=== PATIENT | female | born 1960 | race Caucasian/White ===

== ENCOUNTER → 2016-07-09 | Outpatient (CLI) | payer BC ==
[2016-07-09 16:04] LABS: CH 31.6; HCT 46.1 % (34.0-46.0); HDW 2.76; MCH 30.4 pg (25.0-35.0); MCHC 32.5 g/dL (31.0-37.0); MCV 93.4 fL (80.0-100.0); Mean Platelet Volume 8.1; RBC 4.94 m/uL (3.80-5.40); RDW 12.2 % (11.5-15.5); WBC 9.3 k/uL (3.8-10.6)
[2016-07-09 16:16] LABS: ALT 33 U/L (9-52); AST 20 U/L (14-36); Alkaline Phosphatase 97 U/L (38-126); Anion Gap 14 mmol/L; Blood Urea Nitrogen 12 mg/dL (7-17); Calcium 9.4 mg/dL (8.4-10.2); Carbon Dioxide 24 mmol/L (22-30); Chloride 105 mmol/L (98-107); Glucose 97 mg/dL (74-99); Non-African American GFR(MDRD) >60 (>60 ml/min/1.73 sqM); Sodium 143 mmol/L (137-145); Total Bilirubin 0.4 mg/dL (0.2-1.3); Total Protein 7.7 g/dL (6.3-8.2)
== END | disposition home or self-care (01) ==
LOC: LABWHC1 15:15
PROVIDERS: ATTEND Internal Medicine Critical Care Medicine
DX: J06.9 Acute upper respiratory infection, unspecified (principal)
CPT/HCPCS: 36415; 80053; 85027

== ENCOUNTER → 2016-07-21 | Outpatient (CLI) | payer BC ==
[2016-07-21 08:31] LABS: Basophils # (A) 0.1 k/uL (0-0.2); Basophils % (A) 1 %; CH 31.8; CHCM 34.4; Eosinophils # (A) 0.3 k/uL (0-0.7); Eosinophils % (A) 4 %; HGB 15.6 gm/dL (11.4-16.0); Luc # (Auto) 0.11; Luc % (Auto) 2; Lymphocytes # (A) 2.4 k/uL (1.0-4.8); Lymphocytes % (A) 32 %; MCH 31.4 pg (25.0-35.0); MCHC 33.9 g/dL (31.0-37.0); MCV 92.8 fL (80.0-100.0); Mean Platelet Volume 7.9; Monocytes # (A) 0.4 k/uL (0-1.0); Monocytes % (A) 5 %; Neutrophils # (A) 4.2 k/uL (1.3-7.7); Neutrophils % (A) 56 %; RBC 4.96 m/uL (3.80-5.40); RDW 12.7 % (11.5-15.5); WBC 7.5 k/uL (3.8-10.6); WBC (Perox) 7.53
[2016-07-21 08:44] LABS: ALT 28 U/L (9-52); AST 16 U/L (14-36); Alkaline Phosphatase 93 U/L (38-126); Anion Gap 12 mmol/L; Blood Urea Nitrogen 13 mg/dL (7-17); Calcium 9.2 mg/dL (8.4-10.2); Carbon Dioxide 25 mmol/L (22-30); Chloride 105 mmol/L (98-107); Cholesterol 195 mg/dL (<200); Glucose 92 mg/dL (74-99); HDL Cholesterol 58 mg/dL (40-60); Non-African American GFR(MDRD) >60 (>60 ml/min/1.73 sqM); Potassium 4.4 mmol/L (3.5-5.1); Sodium 142 mmol/L (137-145); Total Bilirubin 0.6 mg/dL (0.2-1.3); Total Protein 7.4 g/dL (6.3-8.2); Triglycerides 202 mg/dL (<150)
[2016-07-21 11:05] LABS: Hemoglobin A1C 5.4 % (4.2-6.1)
== END | disposition home or self-care (01) ==
LOC: LABWHC1 08:02
PROVIDERS: ATTEND Internal Medicine Critical Care Medicine
DX: Z00.00 Encounter for general adult medical examination without abnormal findings (principal); E55.9 Vitamin D deficiency, unspecified; D64.9 Anemia, unspecified
CPT/HCPCS: 36415; 80053; 80061; 82306; 83036; 84439; 84443; 85025

== ENCOUNTER → 2016-08-09 | Outpatient (CLI) | payer BC ==
--- NOTE | 2016-08-09 08:49 | CT ---
EXAMINATION TYPE: CT chest w con DATE OF EXAM: 08/09/2016 8:16 AM COMPARISON: NONE HISTORY: Patient complains of difficulty breathing, chest pain, and cough. CT DLP: 331.2 mGycm, Automated exposure control for dose reduction was used. CONTRAST: Performed injected with 100 mL of Omnipaque 300. TECHNIQUE: Axial images were obtained at 5 mm thick sections. Reconstructed images are reviewed on [employer] computer in the coronal plane. FINDINGS: Portion of the thyroid visualized is normal. No suspicious lung nodules or focal infiltrates are present. No enlarged mediastinal or hilar adenopathy is evident. The ascending aorta diameter at the level o f the main pulmonary artery is 3.6 cm. The main pulmonary artery diameter at the bifurcation is 2.[address] sections are obtained through the upper abdomen. Abdomen is essentially unremarkable. IMPRESSIONS: 1. Unremarkable CT chest.
== END | disposition home or self-care (01) ==
LOC: RADCTMAIN 07:40
PROVIDERS: ATTEND Internal Medicine Critical Care Medicine
DX: R07.9 Chest pain, unspecified (principal); R05 Cough; R06.02 Shortness of breath
CPT/HCPCS: 71260; Q9967

== ENCOUNTER 2016-08-31 06:47 | Day surgery (SDC) | payer BC ==
[2016-08-28 10:00] VITALS: BMI 32.8
[~2016-08-31 06:47] MED LIST: LACTATED RINGERS 1,000 ML IV SCH
[2016-08-31 07:15] VITALS: RESP 16; TEMP 98.1
[2016-08-31 07:26] LABS: Glucose,Whole Blood 89 mg/dL (75-99)
[2016-08-31] MEDS ORDERED: PROPOFOL 10 MG/ML 20 ML VIAL IV ONE (07:46)
[2016-08-31] MEDS ORDERED: LIDOCAINE 1% INJ 10MG/ML (20 ML MDV) ONE (07:46)
--- NOTE | 2016-08-31 07:52 | P.GSHP ---
History of Present Illness H&P Date: 08/31/16 Chief Complaint: Colon cancer screening Patient here today for colonoscopy. Her last colonoscopy was 6-7 years ago. She is family history of colon cancer in her mother and grandmother. Some constipation. Past Medical History Past Medical History: Pneumonia Additional Past Medical History / Comment(s): pneumonia Jun 29 thru end of Jul,steroids Jul 2016,constipation,hemorrhoids History of Any Multi-Drug Resistant Organisms: None Reported Past Surgical History: Cholecystectomy, Hysterectomy Past Anesthesia/Blood Transfusion Reactions: Family History of Problems w/ Anesthesia, Motion Sickness, Postoperative Nausea & Vomiting (PONV) Additional Past Anesthesia/Blood Transfusion Reaction / Comment(s): brother and sister both have PONV Past Psychological History: No Psychological Hx Reported Smoking Status: Former smoker Past Alcohol Use History: Occasional Additional Past Alcohol Use History / Comment(s): smoked casually in teens Past Drug Use History: None Reported - Past Family History Mother Family Medical History: Cancer Additional Family Medical History / Comment(s): colon,lung. mother's mom colon CA Father Family Medical History: Cancer Additional Family Medical History / Comment(s): prostate Brother(s) Family Medical History: Cancer Additional Family Medical History / Comment(s): prostate Medications and Allergies Home Medications Medication Instructions Recorded Confirmed Type Cholecalciferol [Vitamin D3] 1,000 unit PO DAILY 07/27/16 08/31/16 History L.acidoph,Paracasei, B.lactis 1 each PO DAILY 07/27/16 08/31/16 History [Probiotic] Allergies Allergy/AdvReac Type Severity Reaction Status Date / Time No Known Allergies Allergy Verified 08/31/16 07:18 Surgical - Exam Vital Signs Temp Pulse Resp BP 98.1 F 76 16 134/79 08/31/16 07:10 08/31/16 07:10 08/31/16 07:10 08/31/16 07:10 Physical exam: General: Well-developed, well-nourished HEENT: Normocephalic, sclerae nonicteric Abdomen: Nontender, nondistended Extremities: No edema Neuro: Alert and oriented Assessment and Plan (1) Colon cancer screening Narrative/Plan: Will proceed with colonoscopy at this time. Status: Acute
--- NOTE | 2016-08-31 08:10 | P.PCN ---
Date of Procedure: 08/31/16 Procedure(s) Performed: PREOPERATIVE DIAGNOSIS: Colon cancer screening, family history of colon cancer POSTOPERATIVE DIAGNOSIS: Poor colonic prep otherwise normal PROCEDURE: Colonoscopy ANESTHESIA: MAC SURGEON: Joey Salazar M.D. SPECIMENS: None ENDOSCOPIC PROCEDURE: The patient was placed on the endoscopy table in the left decubitus position. The Olympus colonoscope was inserted into the anus and passed under direct visualization to the base of the cecum. The appendiceal orifice was visualized. From that point the scope was slowly withdrawn inspecting all surfaces carefully. There were no neoplastic inflammatory or polypoid lesions throughout the cecum, ascending, transverse, descending, sigmoid and rectum. The patient had retained stool seen scattered throughout the entire colon. This made visualization of the mucosal surfaces challenging. Despite irrigation I would estimate that we were only able to visualize about 70% of the mucosal surfaces. There was no diverticulosis noted. Digital rectal examination was normal. The patient was taken to the recovery room in stable condition per anesthesia guidelines. RECOMMENDATIONS: Increase fiber. Patient should consider 2 day bowel prep next time. Recommend follow-up colonoscopy 5 years.
[2016-08-31 09:01] VITALS: BP 142/85; PULSE 70
== END 2016-08-31 09:14 | disposition home or self-care (01) ==
LOC: ORWHC2ENDO 06:47
PROVIDERS: ATTEND Surgery
DX: Z12.11 Encounter for screening for malignant neoplasm of colon (principal); Z80.0 Family history of malignant neoplasm of digestive organs; E66.9 Obesity, unspecified; Z87.891 Personal history of nicotine dependence; Z79.899 Other long term (current) drug therapy
CPT/HCPCS: J2001; J2704; G0105

== ENCOUNTER → 2016-12-05 | Outpatient (CLI) | payer BC ==
[2016-12-05 18:20] LABS: Follicle Stimulating Hormone 68.5 mIU/mL
== END ==
LOC: LABT 16:55
PROVIDERS: ATTEND Internal Medicine Critical Care Medicine
DX: N91.2 Amenorrhea, unspecified (principal); E55.9 Vitamin D deficiency, unspecified
CPT/HCPCS: 82670; 82672; 83001; 83002; 84402

== ENCOUNTER → 2016-12-10 | Outpatient (CLI) | payer BC ==
--- NOTE | 2016-12-14 13:49 | HM ---
HOLTER MONITOR Patient was monitored for 24 hours. Baseline rhythm is sinus mechanism and normal conduction. The average rate 80 beats per minute, minimum 53, maximal 116 beats per minute. Ventricular ectopic activity is present with single PVC's. A periventricular ectopy was present with rare single PAC's, symptoms of tightness, rapid heartbeat. Did not correlate with any dysrhythmia. CONCLUSION: 1. Sinus mechanism with baseline rhythm. 2. Rare ventricular ectopic activity. 3. Rare supraventricular ectopic activity. 4. Symptoms did not correlate with any dysrhythmia. MTDD
== END | disposition home or self-care (01) ==
LOC: RADECHMAIN 12:31
PROVIDERS: ATTEND Internal Medicine Critical Care Medicine
DX: I47.1 Supraventricular tachycardia (principal)
CPT/HCPCS: 93225; 93226

== ENCOUNTER → 2017-02-08 | Outpatient (CLI) | payer BC ==
--- NOTE | 2017-02-08 09:54 | BD ---
EXAMINATION TYPE: MG DEXA axial skeleton. DATE OF EXAM: 02/08/2017 COMPARISON: NONE CLINICAL HISTORY: Z78.0 POST MENOPAUSAL Height: 66 Weight: 214 FRAX RISK QUESTIONS: Alcohol (3 or more units per day): NO Family History (Parent hip fracture): NO Glucocorticoids (More than 3mos): NO (Ex: prednisone, prednisolone, methylprednisolone, dexamethasone, and hydrocortisone). History of Fracture in Adulthood: NO Secondary Osteoporosis: NO 1. Type 1 Diabetes: NO 2. Hyperthyroidism: NO 3. Menopause before 45: NO 4. Malnutrition: NO 5. Chronic liver disease: NO Rheumatoid Arthritis: NO Current Tobacco Use: NO RISK FACTORS HISTORY OF: Spine Fracture: OLD FRACTURE LUMBAR SPINE When: IN HER 20'S ROTATOR CUFF TEAR LT SHOULDER FROM ANOTHER FALL Family History of Osteoporosis: NONE KNOWN Active: YES Diet low in dairy products/other sources of calcium: NO Postmenopausal woman: HYST AT 44 YRS OLD, HORMONAL CHANGES AT AGE 54 Lost more than 2 inches in height since high school: NO Hyperparathyroidism: NO Adrenal Insufficiency: NO MEDICATIONS: Prednisone or other steroids: STEROIDS WITH PNEUMONIA ON AND OFF Additional Medications: VIT D WHEN SHE REMEMBERS, HERBAL REMEDY FOR MENOPAUSE Additional History: NONE TO NOTE EXAM MEASUREMENTS: Bone mineral densitometry was performed using the Pumpic System. OLD LUMBAR FX....FROM FALL IN HER 20'S......LUMBAR NOT SCANNED Bone mineral density about the R hip (g/cm2): 1.197 Bone mineral density about the L hip (g/cm2): 1.197 T Score values are as follows: -----R Neck: 1.0 -----L Neck: 0.6 -----R Total: 1.5 -----L Total: 1.5 Bone mineral density THIS IS HER FIRST BONE DENSITY TEST.....BASELINE STUDY FRAX%'S: THERE IS A 4.4% CHANCE OF A MAJOR OSTEOPOROSIS FX AND A 0.0% CHANCE FOR HIP FX... PROBABI LITY IN 10 YRS TIME IMPRESSION: Normal (Values between +1 and -1 indicate normal bone mass). Consider repeating this study in 5 year s or sooner if there is some new clinical indication. FOR BOTH OF HER HIPS. NOTE: T-SCORE=SD OF THE YOUNG ADULT MEAN.
--- NOTE | 2017-02-11 07:22 | MM ---
Reason for exam: screening (asymptomatic). Last mammogram was performed 1 year and 9 months ago. History: Patient is postmenopausal. Family history of premenopausal breast cancer in sister at age 51. Physical Findings: A clinical breast exam by your physician is recommended on an annual basis and results should be correlated with mammographic findings. MG Screening Mammo w CAD Bilateral CC and MLO view(s) were taken. Prior study comparison: May 23, 2015, left breast MG 3d work up w/cad LT. May 10, 2015, bilateral MG screening mammo w CAD. There are scattered fibroglandular densities. There is no discrete abnormality. No significant changes when compared with prior studies. ASSESSMENT: Negative, BI-RAD 1 RECOMMENDATION: Routine screening mammogram of both breasts in 1 year.
== END | disposition home or self-care (01) ==
LOC: RADMAMWWP 08:52
PROVIDERS: ATTEND Obstetrics & Gynecology
DX: Z12.31 Encounter for screening mammogram for malignant neoplasm of breast (principal); Z78.0 Asymptomatic menopausal state
CPT/HCPCS: 77080; G0202

== ENCOUNTER → 2017-08-31 | Outpatient (CLI) | payer BC ==
[2017-08-31 09:04] LABS: Basophils % (A) 1 %; Eosinophils # (A) 0.4 k/uL (0-0.7); Eosinophils % (A) 14 %; HCT 42.2 % (34.0-46.0); HGB 14.3 gm/dL (11.4-16.0); Lymphocytes # (A) 0.7 k/uL (1.0-4.8); Lymphocytes % (A) 23 %; MCHC 33.9 g/dL (31.0-37.0); MCV 88.6 fL (80.0-100.0); Mean Platelet Volume 8.1; Monocytes # (A) 0.2 k/uL (0-1.0); Monocytes % (A) 7 %; Neutrophils # (A) 1.7 k/uL (1.3-7.7); Neutrophils % (A) 54 %; Platelet Count 214 k/uL (150-450); RBC 4.76 m/uL (3.80-5.40); RDW 12.7 % (11.5-15.5); WBC 3.2 k/uL (3.8-10.6)
[2017-08-31 09:24] LABS: ALT 237 U/L (9-52); AST 245 U/L (14-36); Albumin 4.2 g/dL (3.5-5.0); Alkaline Phosphatase 128 U/L (38-126); Anion Gap 14 mmol/L; Blood Urea Nitrogen 14 mg/dL (7-17); Calcium 9.5 mg/dL (8.4-10.2); Carbon Dioxide 25 mmol/L (22-30); Chloride 106 mmol/L (98-107); Cholesterol 165 mg/dL (<200); Glucose 94 mg/dL (74-99); HDL Cholesterol 54 mg/dL (40-60); LDL Cholesterol,Calculated 87 mg/dL (0-99); Potassium 4.5 mmol/L (3.5-5.1); Sodium 145 mmol/L (137-145); Total Bilirubin 0.7 mg/dL (0.2-1.3); Total Protein 7.1 g/dL (6.3-8.2); Triglycerides 119 mg/dL (<150)
[2017-08-31 09:38] LABS: T4, Free (Free Thyroxine) 0.88 ng/dL (0.78-2.19)
[2017-08-31 18:37] LABS: Hemoglobin A1C 4.9 % (4.0-6.0)
== END ==
LOC: LABWHC1 08:04
PROVIDERS: ATTEND Internal Medicine Critical Care Medicine
DX: Z00.00 Encounter for general adult medical examination without abnormal findings (principal); D64.9 Anemia, unspecified; E55.9 Vitamin D deficiency, unspecified
CPT/HCPCS: 36415; 80053; 80061; 82306; 83036; 84439; 84443; 85025

== ENCOUNTER → 2017-09-03 | Outpatient (CLI) | payer BC ==
[2017-09-03 18:12] LABS: Albumin 4.6 g/dL (3.5-5.0); Bilirubin, Delta 0.3 mg/dL (0.0-0.2); Bilirubin,Unconjugated 0.2 mg/dL (0.0-1.1); Total Bilirubin 0.5 mg/dL (0.2-1.3); Total Protein 7.9 g/dL (6.3-8.2)
[2017-09-04 01:56] LABS: Hepatitis A Antibody IgM Non-Reactive (Non-Reactive); Hepatitis B Core IgM Non-Reactive (Non-Reactive)
== END | disposition home or self-care (01) ==
LOC: LABWHC1 17:22
PROVIDERS: ATTEND Internal Medicine Critical Care Medicine
DX: R74.8 Abnormal levels of other serum enzymes (principal)
CPT/HCPCS: 36415; 80074; 80076; 82150; 83690

== ENCOUNTER → 2017-09-11 | Outpatient (CLI) | payer BC ==
--- NOTE | 2017-09-11 09:55 | US ---
EXAMINATION TYPE: US abdomen limited DATE OF EXAM: 09/11/2017 COMPARISON: NONE CLINICAL HISTORY: R94.5 Elevated liver function. Cholecystectomy, elevated liver enzymes EXAM MEASUREMENTS: Liver Length: 15.1 cm Gallbladder Wall: Surgically absent CBD: 0.4 cm Right Kidney: 11.4 x 4.0 x 5.0 cm Pancreas: visualized portions appear wnl Liver: hyperechoic area left lobe = 1.3 x 1.1 x 1.2cm Gallbladder: Surgically absent Evidence for sonographic Morales's sign: no CBD: wnl Right Kidney: no evidence of hydronephrosis or mass IMPRESSION: 1. Slightly hyperechoic area within the right lobe liver could represent a hemangioma. Consider contr ast CT for additional evaluation.
== END | disposition home or self-care (01) ==
LOC: RADUSWWP 07:25
PROVIDERS: ATTEND Internal Medicine Critical Care Medicine
DX: R93.2 Abnormal findings on diagnostic imaging of liver and biliary tract (principal); R94.5 Abnormal results of liver function studies
CPT/HCPCS: 76705

== ENCOUNTER → 2018-02-14 | Outpatient (CLI) | payer BC ==
--- NOTE | 2018-02-17 12:41 | MM ---
Reason for exam: screening (asymptomatic). Last mammogram was performed 1 year ago. History: Patient is postmenopausal. Family history of premenopausal breast cancer in sister at age 51. Physical Findings: A clinical breast exam by your physician is recommended on an annual basis and results should be correlated with mammographic findings. MG 3D Screening Mammo W/Cad Bilateral CC and MLO view(s) were taken. Prior study comparison: February 08, 2017, bilateral MG screening mammo w CAD. May 23, 2015, left breast MG 3d work up w/cad LT. The breast tissue is heterogeneously dense. This may lower the sensitivity of mammography. Focal asymmetry upper outer right breast. This finding is changed when compared with previous exams. ASSESSMENT: Incomplete: need additional imaging evaluation, BI-RAD 0 RECOMMENDATION: Special view mammogram of the right breast. If lesion persists on supplemental views, image directed ultrasound is recommended. [facility] will attempt to contact patient to return for supplemental views and ultrasound if indicated.
== END | disposition home or self-care (01) ==
LOC: RADMAMWWP 16:34
PROVIDERS: ATTEND Internal Medicine Critical Care Medicine
DX: Z12.31 Encounter for screening mammogram for malignant neoplasm of breast (principal)
CPT/HCPCS: 77063; 77067

== ENCOUNTER → 2018-02-25 | Outpatient (CLI) | payer BC ==
--- NOTE | 2018-02-25 14:07 | MM ---
Reason for exam: additional evaluation requested from abnormal screening. Last mammogram was performed less than 1 month ago. History: Patient is postmenopausal. Family history of premenopausal breast cancer in sister at age 51. Physical Findings: Nurse did not find any significant physical abnormalities on exam. MG 3D Work Up W/Cad RT Spot compression CC, spot compression MLO, and LM view(s) were taken of the right breast. Prior study comparison: February 14, 2018, bilateral MG 3d screening mammo w/cad. February 08, 2017, bilateral MG screening mammo w CAD. There are scattered fibroglandular densities. There is no discrete abnormality. These results were verbally communicated with the patient and result sheet given to the patient on 02/25/18. ASSESSMENT: Benign, BI-RAD 2 RECOMMENDATION: Return to routine screening mammogram schedule for both breasts.
== END | disposition home or self-care (01) ==
LOC: RADMAMWWP 12:55
PROVIDERS: ATTEND Internal Medicine Critical Care Medicine
DX: R92.8 Other abnormal and inconclusive findings on diagnostic imaging of breast (principal)
CPT/HCPCS: 77061; 77065

== ENCOUNTER → 2018-09-04 | Outpatient (CLI) | payer BC ==
[2018-09-04 07:16] LABS: Basophils # (A) 0.1 k/uL (0-0.2); Basophils % (A) 1 %; Eosinophils # (A) 0.4 k/uL (0-0.7); Eosinophils % (A) 7 %; HCT 41.1 % (34.0-46.0); HGB 14.1 gm/dL (11.4-16.0); Lymphocytes % (A) 35 %; MCH 30.5 pg (25.0-35.0); MCHC 34.3 g/dL (31.0-37.0); Mean Platelet Volume 8.6; Monocytes # (A) 0.3 k/uL (0-1.0); Monocytes % (A) 5 %; Neutrophils # (A) 2.9 k/uL (1.3-7.7); Neutrophils % (A) 51 %; Platelet Count 246 k/uL (150-450); RBC 4.62 m/uL (3.80-5.40); RDW 13.2 % (11.5-15.5); WBC 5.6 k/uL (3.8-10.6)
[2018-09-04 09:41] LABS: Erythrocyte Sedimentation Rate 14 mm/hr (0-20)
[2018-09-04 11:52] LABS: ALT 19 U/L (8-44); AST 25 U/L (13-35); Alkaline Phosphatase 124 U/L (41-126); Bilirubin, Conjugated <0.20 mg/dL (0.20-0.40); Calcium 9.3 mg/dL (8.7-10.3); Carbon Dioxide 26.2 mmol/L (21.6-31.8); Chloride 107 mmol/L (96-109); Cholesterol 185 mg/dL (0-200); Globulin 2.2 g/dL (1.6-3.3); Glucose 103 mg/dL (70-110); LDL Cholesterol,Calculated 98.8 mg/dL (0.0-131.0); Potassium 4.2 mmol/L (3.5-5.5); Sodium 142 mmol/L (135-145); Total Bilirubin 0.5 mg/dL (0.2-1.2); Total Protein 6.6 g/dL (6.2-8.2)
[2018-09-04 15:25] LABS: Hemoglobin A1C 5.3 % (4.0-6.0)
== END ==
LOC: LABWHC1 06:54
PROVIDERS: ATTEND Internal Medicine Critical Care Medicine
DX: Z00.00 Encounter for general adult medical examination without abnormal findings (principal); E55.9 Vitamin D deficiency, unspecified; K75.9 Inflammatory liver disease, unspecified; Z79.899 Other long term (current) drug therapy
CPT/HCPCS: 36415; 80053; 80061; 82248; 82306; 83036; 84439; 84443; 84481; 85025; 85652

== ENCOUNTER → 2019-03-17 | Outpatient (CLI) | payer BC ==
--- NOTE | 2019-03-19 08:34 | MM ---
Reason for exam: screening (asymptomatic). Last mammogram was performed 1 year and 1 month ago. History: Patient is postmenopausal. Family history of premenopausal breast cancer in sister at age 51. Physical Findings: A clinical breast exam by your physician is recommended on an annual basis and results should be correlated with mammographic findings. MG 3D Screening Mammo W/Cad Bilateral CC and MLO view(s) were taken. Prior study comparison: February 25, 2018, right breast MG 3d work up w/cad RT. February 14, 2018, bilateral MG 3d screening mammo w/cad. The breast tissue is heterogeneously dense. This may lower the sensitivity of mammography. No significant changes when compared with prior studies. ASSESSMENT: Benign, BI-RAD 2 RECOMMENDATION: Routine screening mammogram of both breasts in 1 year.
== END | disposition home or self-care (01) ==
LOC: RADMAMWWP 12:58
PROVIDERS: ATTEND Internal Medicine Critical Care Medicine
DX: Z12.31 Encounter for screening mammogram for malignant neoplasm of breast (principal)
CPT/HCPCS: 77063; 77067

== ENCOUNTER → 2020-05-06 | Outpatient (CLI) | payer BC ==
--- NOTE | 2020-05-10 08:30 | MM ---
Reason for exam: screening (asymptomatic). Last mammogram was performed 1 year and 2 months ago. History: Patient is postmenopausal. Family history of premenopausal breast cancer in sister at age 51. Physical Findings: A clinical breast exam by your physician is recommended on an annual basis and results should be correlated with mammographic findings. MG 3D Screening Mammo W/Cad Bilateral CC and MLO view(s) were taken. Prior study comparison: March 17, 2019, bilateral MG 3d screening mammo w/cad. February 25, 2018, right breast MG 3d work up w/cad RT. The breast tissue is heterogeneously dense. This may lower the sensitivity of mammography. There is chronic nodularity bilaterally. No significant changes when compared with prior studies. ASSESSMENT: Negative, BI-RAD 1 RECOMMENDATION: Routine screening mammogram of both breasts in 1 year.
== END | disposition home or self-care (01) ==
LOC: RADMAMWWP 11:16
PROVIDERS: ATTEND Internal Medicine Critical Care Medicine
DX: Z12.31 Encounter for screening mammogram for malignant neoplasm of breast (principal)
CPT/HCPCS: 77063; 77067

== ENCOUNTER → 2020-08-12 | Outpatient (CLI) | payer OTHER ==
[2020-08-12 15:36] LABS: Basophils # (A) 0.06 X 10*3/uL (0.00-0.10); Basophils % (A) 1.2 %; Eosinophils % (A) 8.1 %; HCT 43.9 % (37.2-46.3); HGB 14.3 g/dL (12.0-15.0); Lymphocytes # (A) 1.79 X 10*3/uL (0.90-5.00); Lymphocytes % (A) 36.3 %; MCH 30.8 pg (27.0-32.0); MCHC 32.6 g/dL (32.0-37.0); MCV 94.4 fL (80.0-97.0); Mean Platelet Volume 11.2 fL (9.5-12.2); Monocytes # (A) 0.37 X 10*3/uL (0.20-1.00); Monocytes % (A) 7.5 %; Neutrophils % (A) 46.7 %; Platelet Count 261 X 10*3/uL (140-440); RBC 4.65 X 10*6/uL (4.10-5.20); WBC 4.93 X 10*3/uL (4.50-10.00)
[2020-08-12 19:17] LABS: African American GFR (CKD) 81.7 (60.0-200.0); Albumin 4.6 g/dL (3.80-4.90); Anion Gap 9.7 mmol/L (4.00-12.00); BUN/Creat Ratio 14.44 Ratio (12.00-20.00); Bilirubin, Conjugated 0.2 mg/dL (0.20-0.40); Bilirubin,Unconjugated 0.6 mg/dL; Carbon Dioxide 26.3 mmol/L (21.6-31.8); Chol/HDL Ratio 3.47; Globulin 2.3 g/dL (1.6-3.3); LDL Cholesterol,Calculated 117.4 mg/dL (0.0-131.0); Non-African American GFR(CKD) 70.5 (60.0-200.0); Potassium 4.9 mmol/L (3.5-5.5); Total Bilirubin 0.8 mg/dL (0.2-1.2); Total Protein 6.9 g/dL (6.2-8.2); VLDL Calculation 23.6 mg/dL (5.00-40.00)
[2020-08-12 19:24] LABS: T4, Free (Free Thyroxine) 1.2 ng/dL (0.80-1.80)
== END | disposition home or self-care (01) ==
LOC: LABWHC1 07:41
PROVIDERS: ATTEND Internal Medicine Critical Care Medicine
DX: Z00.00 Encounter for general adult medical examination without abnormal findings (principal); B17.9 Acute viral hepatitis, unspecified; E55.9 Vitamin D deficiency, unspecified; D64.9 Anemia, unspecified
CPT/HCPCS: 36415; 80053; 80061; 82248; 82306; 83036; 84439; 84443; 84481; 85025

== ENCOUNTER 2020-11-15 11:00 | Observation (INO) | payer OTHER ==
--- NOTE | 2020-11-15 11:20 | ED ---
General Adult HPI - General Chief complaint: Chest Pain Stated complaint: Chest Discomfort/Jaw Pain Time Seen by Provider: 11/15/20 11:19 Source: patient, family, RN notes reviewed Mode of arrival: ambulatory Limitations: no limitations - History of Present Illness Initial comments: Patient is a pleasant 60-year-old female presenting to the emergency Department with chest discomfort. Patient has been having symptoms for the past several weeks. No discomfort at this time however patient does have some jaw discomfort. Patient has had some exertional dyspnea. Patient did have an episode a few weeks ago with more significant chest discomfort associated with dyspnea and diaphoresis. Patient has had some intermittent nausea. No leg pain or leg swelling. Patient has strong family history of cardiac disease. - Related Data Home Medications Medication Instructions Recorded Confirmed Naproxen Sodium [Aleve] 220 mg PO ONETIME PRN 11/15/20 11/15/20 Allergies Allergy/AdvReac Type Severity Reaction Status Date / Time azithromycin AdvReac yeast Verified 11/15/20 12:40 infection meclizine [From [facility]] AdvReac Chest Pain Verified 11/15/20 12:40 Review of Systems ROS Statement: Those systems with pertinent positive or pertinent negative responses have been documented in the HPI. ROS Other: All systems not noted in ROS Statement are negative. Constitutional: Denies: fever Eyes: Denies: eye pain ENT: Denies: ear pain Respiratory: Reports: as per HPI. Denies: cough Cardiovascular: Reports: as per HPI, chest pain Endocrine: Reports: fatigue Gastrointestinal: Denies: abdominal pain Genitourinary: Denies: dysuria Musculoskeletal: Denies: back pain Skin: Denies: rash Neurological: Denies: weakness Past Medical History Past Medical History: No Reported History Additional Past Medical History / Comment(s): pneumonia Jun 29, thru end of Jul,steroids Jul 2016,constipation,hemorrhoids History of Any Multi-Drug Resistant Organisms: None Reported Past Surgical History: Back Surgery, Cholecystectomy, Hysterectomy Past Anesthesia/Blood Transfusion Reactions: Family History of Problems w/ Anesthesia, Motion Sickness, Postoperative Nausea & Vomiting (PONV) Additional Past Anesthesia/Blood Transfusion Reaction / Comment(s): brother and sister both have PONV Past Psychological History: No Psychological Hx Reported Smoking Status: Never smoker Past Alcohol Use History: Occasional Past Drug Use History: None Reported - Past Family History Mother Family Medical History: Cancer Additional Family Medical History / Comment(s): colon,lung. mother's mom colon CA Father Family Medical History: Cancer Additional Family Medical History / Comment(s): prostate Brother(s) Family Medical History: Cancer Additional Family Medical History / Comment(s): prostate General Exam Limitations: no limitations General appearance: alert, in no apparent distress Head exam: Present: normocephalic Eye exam: Present: normal appearance Neck exam: Present: normal inspection Respiratory exam: Present: normal lung sounds bilaterally. Absent: chest wall tenderness Cardiovascular Exam: Present: regular rate, normal rhythm Expanded Peripheral pulses: 2+: Radial (R), Radial (L), Posterior Tibialis (R), Posterior Tibialis (L) GI/Abdominal exam: Present: soft. Absent: tenderness Extremities exam: Present: normal inspection. Absent: pedal edema, calf tenderness Neurological exam: Present: alert Psychiatric exam: Present: normal affect, normal mood Skin exam: Present: normal color Course Vital Signs 11/15/20 11/15/20 11/15/20 11:05 12:14 13:19 Temperature 97.9 F Pulse Rate 101 H 65 62 Respiratory 18 18 18 Rate Blood Pressure 172/89 169/97 165/95 O2 Sat by Pulse 98 98 98 Oximetry EKG Findings - EKG Comments: EKG Findings:: EKG shows sinus rhythm with a rate of 83. UT 148. QRS 90. QT 402. QTC 472. Normal axis. Normal QRS. Nonspecific ST-T. Medical Decision Making - Medical Decision Making Patient reevaluated and resting comfortably in bed. Patient updated on results and plan. Case was discussed in detail with Dr. Pradhan, covering for hospital call who will admit. - Lab Data Result diagrams: 11/15/20 12:06 11/15/20 12:06 Lab Results 11/15/20 11/15/20 11/15/20 Range/Units 12:06 12:06 12:06 WBC 5.8 (3.8-10.6) k/uL RBC 4.51 (3.80-5.40) m/uL Hgb 14.0 (11.4-16.0) gm/dL Hct 40.7 (34.0-46.0) % MCV 90.3 (80.0-100.0) fL MCH 31.0 (25.0-35.0) pg MCHC 34.4 (31.0-37.0) g/dL RDW 12.5 (11.5-15.5) % Plt Count 234 (150-450) k/uL MPV 7.9 Neutrophils % 53 % Lymphocytes % 33 % Monocytes % 5 % Eosinophils % 7 % Basophils % 1 % Neutrophils # 3.1 (1.3-7.7) k/uL Lymphocytes # 1.9 (1.0-4.8) k/uL Monocytes # 0.3 (0-1.0) k/uL Eosinophils # 0.4 (0-0.7) k/uL Basophils # 0.1 (0-0.2) k/uL PT 10.2 (9.0-12.0) sec INR 0.9 (<1.2) APTT 24.7 (22.0-30.0) sec D-Dimer 0.29 (<0.60) mg/L FEU Sodium 141 (137-145) mmol/L Potassium 4.0 (3.5-5.1) mmol/L Chloride 104 (98-107) mmol/L Carbon Dioxide 26 (22-30) mmol/L Anion Gap 11 mmol/L BUN 15 (7-17) mg/dL Creatinine 0.78 (0.52-1.04) mg/dL Est GFR (CKD-EPI)AfAm >90 (>60 ml/min/1.73 sqM) Est GFR (CKD-EPI)NonAf 84 (>60 ml/min/1.73 sqM) Glucose 99 (74-99) mg/dL Calcium 9.8 (8.4-10.2) mg/dL Magnesium 2.0 (1.6-2.3) mg/dL Total Bilirubin 0.5 (0.2-1.3) mg/dL AST 22 (14-36) U/L ALT 14 (4-34) U/L Alkaline Phosphatase 132 H (38-126) U/L Troponin I (0.000-0.034) ng/mL NT-Pro-B Natriuret Pep pg/mL Total Protein 7.2 (6.3-8.2) g/dL Albumin 4.4 (3.5-5.0) g/dL 11/15/20 11/15/20 Range/Units 12:06 12:06 WBC (3.8-10.6) k/uL RBC (3.80-5.40) m/uL Hgb (11.4-16.0) gm/dL Hct (34.0-46.0) % MCV (80.0-100.0) fL MCH (25.0-35.0) pg MCHC (31.0-37.0) g/dL RDW (11.5-15.5) % Plt Count (150-450) k/uL MPV Neutrophils % % Lymphocytes % % Monocytes % % Eosinophils % % Basophils % % Neutrophils # (1.3-7.7) k/uL Lymphocytes # (1.0-4.8) k/uL Monocytes # (0-1.0) k/uL Eosinophils # (0-0.7) k/uL Basophils # (0-0.2) k/uL PT (9.0-12.0) sec INR (<1.2) APTT (22.0-30.0) sec D-Dimer (<0.60) mg/L FEU Sodium (137-145) mmol/L Potassium (3.5-5.1) mmol/L Chloride (98-107) mmol/L Carbon Dioxide (22-30) mmol/L Anion Gap mmol/L BUN (7-17) mg/dL Creatinine (0.52-1.04) mg/dL Est GFR (CKD-EPI)AfAm (>60 ml/min/1.73 sqM) Est GFR (CKD-EPI)NonAf (>60 ml/min/1.73 sqM) Glucose (74-99) mg/dL Calcium (8.4-10.2) mg/dL Magnesium (1.6-2.3) mg/dL Total Bilirubin (0.2-1.3) mg/dL AST (14-36) U/L ALT (4-34) U/L Alkaline Phosphatase (38-126) U/L Troponin I <0.012 (0.000-0.034) ng/mL NT-Pro-B Natriuret Pep 111 pg/mL Total Protein (6.3-8.2) g/dL Albumin (3.5-5.0) g/dL - Radiology Data Radiology results: image reviewed (Chest x-ray reveals no acute process) Disposition Clinical Impression: Chest pain Disposition: ADMITTED IP TO THIS HOSP Is patient prescribed a controlled substance at d/c from ED?: No Referrals: Refugio Chase DO [Primary Care Provider] - 1-2 days Decision Time: 13:31
[2020-11-15] MEDS ORDERED: ASPIRIN 81 MG PO STA (11:57)
[2020-11-15] MEDS ORDERED: NITROGLYCERIN OINT 1 INCH/GM PACKET TOPICAL STA (11:57)
[2020-11-15 12:14] LABS: Basophils # (A) 0.1 k/uL (0-0.2); Basophils % (A) 1 %; Eosinophils # (A) 0.4 k/uL (0-0.7); Eosinophils % (A) 7 %; HCT 40.7 % (34.0-46.0); Lymphocytes # (A) 1.9 k/uL (1.0-4.8); Lymphocytes % (A) 33 %; MCHC 34.4 g/dL (31.0-37.0); MCV 90.3 fL (80.0-100.0); Mean Platelet Volume 7.9; Monocytes # (A) 0.3 k/uL (0-1.0); Monocytes % (A) 5 %; Neutrophils # (A) 3.1 k/uL (1.3-7.7); Neutrophils % (A) 53 %; Platelet Count 234 k/uL (150-450); RBC 4.51 m/uL (3.80-5.40); RDW 12.5 % (11.5-15.5); WBC 5.8 k/uL (3.8-10.6)
[2020-11-15 12:31] LABS: D-Dimer 0.29 mg/L FEU (<0.60); INR 0.9 (<1.2); Partial Thromboplastin Time 24.7 sec (22.0-30.0); Prothrombin Time 10.2 sec (9.0-12.0)
[2020-11-15 12:46] LABS: ALT 14 U/L (4-34); AST 22 U/L (14-36); African American GFR (CKD) >90 (>60 ml/min/1.73 sqM); Albumin 4.4 g/dL (3.5-5.0); Alkaline Phosphatase 132 U/L (38-126); Anion Gap 11 mmol/L; Blood Urea Nitrogen 15 mg/dL (7-17); Calcium 9.8 mg/dL (8.4-10.2); Carbon Dioxide 26 mmol/L (22-30); Chloride 104 mmol/L (98-107); Glucose 99 mg/dL (74-99); Non-African American GFR(CKD) 84 (>60 ml/min/1.73 sqM); Sodium 141 mmol/L (137-145); Total Bilirubin 0.5 mg/dL (0.2-1.3); Total Protein 7.2 g/dL (6.3-8.2)
--- NOTE | 2020-11-15 13:09 | XR ---
EXAMINATION TYPE: XR chest 2V DATE OF EXAM: 11/15/2020 COMPARISON: 08/09/2016 HISTORY: chest pain TECHNIQUE: Frontal and lateral views of the chest are obtained. FINDINGS: There is no focal air space opacity, pleural effusion, or pneumothorax seen. The cardiac silhouette size is within normal limits. The osseous structures are intact. IMPRESSION: No acute cardiopulmonary process.
[2020-11-15] MEDS ORDERED: NITROGLYCERIN SL TABS 0.4 MG TAB SUBLINGUAL PRN (13:32)
--- NOTE | 2020-11-15 14:34 | P.CRDCN ---
History of Present Illness Consult date: 11/15/20 History of present illness: HISTORY OF PRESENT ILLNESS: This is a 60-year-old female with no significant past medical history. She is a nonsmoker. She reports occasional alcohol use. She does have a family history of coronary artery disease and states her dad had a CABG when he was in his 50s and her mom had a CABG in her early 60s. 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 Durham. We have been asked to see the patient in consultation for chest pain. Patient examined at the bedside in the emergency room. Patient states 3 weeks ago she was on vacation with her family. She states she was relaxing in a pool and her daughter brought her a drink made with tequila. She states shortly afterwards she began having severe chest pain and felt like somebody was sitting on her chest. She also reports dizziness and states she thought she was going to pass out. She got out of the pool and went to sit down and states the pain went away on its own in about 45 minutes. Patient reports this morning she got up for work in was having left jaw pain. She took some Advil and went to work. She was telling a coworker about her jaw pain and her coworker told her this co uld be a sign of heart attack so she came to the emergency room. Patient reports mild chest pressure this morning but nothing like she experienced 3 weeks ago. She denies nausea or vomiting. She denies shortness of breath at rest but reports occasional shortness of breath with exertion. She also reports occasionally getting lightheaded and sweaty over the past couple weeks. Patient's pain is worse with deep inspiration. Patient is also having tenderness with chest wall palpation. Patients blood pressure is elevated in the ER with a systolic in the 160-170s. Patient states she checks her blood pressure at home and it usually r EKG reveals sinus mechanism with [address] depression and high lateral leads Chest xray negative for acute process Laboratory data: WBC 5.8. Hemoglobin 14.0. Platelet count 234. D-dimer 0.29. Sodium 141. Potassium 4.0. BUN 15. Creatinine 0.78. Magnesium 2.0. Troponin negative 1. Current home cardiac medications include none REVIEW OF SYSTEMS: At the time of my exam: CONSTITUTIONAL: Denies fever or chills. HEENT: Denies blurred vision, vision changes, or eye pain. Denies hemoptysis CARDIOVASCULAR: Denies chest pain. Denies orthopnea. Denies PND. Denies palpitations RESPIRATORY: Denies shortness of breath. GASTROINTESTINAL: Denies abdominal pain. Denies nausea or vomiting. HEMATOLOGIC: Denies bleeding disorders. GENITOURINARY: Denies any blood in urine. SKIN: Denies pruitis. Denies rash. PHYSICAL EXAM: VITAL SIGNS: Reviewed. GENERAL: Well-developed in no acute distress. HEENT: Head is normocephalic. Pupils are equal, round. Sclerae anicteric. Mucous membranes of the mouth are moist. Neck supple. No JVD or thyromegaly LUNGS: Respirations even and unlabored. Lungs essentially clear to auscultation bilaterally. HEART: Regular rate and rhythm. S1 and S2 heard. Chest wall tender with palpation. ABDOMEN: Soft. Nondistended. Nontender. EXTREMITIES: Normal range of motion. No clubbing or cyanosis. Peripheral pulses intact. No lower extremity edema NEUROLOGIC: Awake and alert. Oriented x 3. ASSESSMENT: Chest pain with atypical features Hypertensive in ER, denies hx of HTN Occasional alcohol use Family history of coronary artery disease PLAN: Continue to trend troponin levels Continue aspirin 81mg and nitro paste Add lisinopril 5mg daily for optimal blood pressure control Obtain 2D echo to assess cardiac structure and function If troponin levels remain negative, patient will undergo stress echo tomorrow Further recommendations pending patient course Nurse practitioner note has been reviewed by physician. Signing provider agrees with the documented findings, assessment, and plan of care. Past Medical History Past Medical History: No Reported History Additional Past Medical History / Comment(s): pneumonia Jun 29, thru end of Jul,steroids Jul 2016,constipation,hemorrhoids History of Any Multi-Drug Resistant Organisms: None Reported Past Surgical History: Back Surgery, Cholecystectomy, Hysterectomy Past Anesthesia/Blood Transfusion Reactions: Family History of Problems w/ Anesthesia, Motion Sickness, Postoperative Nausea & Vomiting (PONV) Additional Past Anesthesia/Blood Transfusion Reaction / Comment(s): brother and sister both have PONV Past Psychological History: No Psychological Hx Reported Smoking Status: Never smoker Past Alcohol Use History: Occasional Past Drug Use History: None Reported - Past Family History Mother Family Medical History: Cancer Additional Family Medical History / Comment(s): colon,lung. mother's mom colon CA Father Family Medical History: Cancer Additional Family Medical History / Comment(s): prostate Brother(s) Family Medical History: Cancer Additional Family Medical History / Comment(s): prostate Medications and Allergies Home Medications Medication Instructions Recorded Confirmed Type Naproxen Sodium [Aleve] 220 mg PO ONETIME PRN 11/15/20 11/15/20 History Allergies Allergy/AdvReac Type Severity Reaction Status Date / Time azithromycin AdvReac yeast Verified 11/15/20 12:40 infection meclizine [From [facility]] AdvReac Chest Pain Verified 11/15/20 12:40 Physical Exam Vitals: Vital Signs Temp Pulse Resp BP Pulse Ox 11/15/20 13:19 62 18 165/95 98 11/15/20 12:14 65 18 169/97 98 11/15/20 11:05 97.9 F 101 H 18 172/89 98 Intake and Output 11/14/20 11/15/20 11/15/20 22:59 06:59 14:59 Other: Weight 95.254 kg Results 11/15/20 12:06 11/15/20 12:06 Cardiac Enzymes 11/15/20 11/15/20 Range/Units 12:06 12:06 AST 22 (14-36) U/L Troponin I <0.012 (0.000-0.034) ng/mL Coagulation 11/15/20 Range/Units 12:06 PT 10.2 (9.0-12.0) sec APTT 24.7 (22.0-30.0) sec CBC 11/15/20 Range/Units 12:06 WBC 5.8 (3.8-10.6) k/uL RBC 4.51 (3.80-5.40) m/uL Hgb 14.0 (11.4-16.0) gm/dL Hct 40.7 (34.0-46.0) % Plt Count 234 (150-450) k/uL Comprehensive Metabolic Panel 11/15/20 Range/Units 12:06 Sodium 141 (137-145) mmol/L Potassium 4.0 (3.5-5.1) mmol/L Chloride 104 (98-107) mmol/L Carbon Dioxide 26 (22-30) mmol/L BUN 15 (7-17) mg/dL Creatinine 0.78 (0.52-1.04) mg/dL Glucose 99 (74-99) mg/dL Calcium 9.8 (8.4-10.2) mg/dL AST 22 (14-36) U/L ALT 14 (4-34) U/L Alkaline Phosphatase 132 H (38-126) U/L Total Protein 7.2 (6.3-8.2) g/dL Albumin 4.4 (3.5-5.0) g/dL Current Medications Generic Name Dose Route Start Last Admin Trade Name Freq PRN Reason Stop Dose Admin Aspirin 325 mg 11/16/20 09:00 Aspirin 325 Mg Tab PO DAILY ERICA Nitroglycerin 0.4 mg 11/15/20 13:32 Nitroglycerin Sl Tabs 0.4 Mg Tab SUBLINGUAL Q5M PRN Chest Pain Nitroglycerin 1 inch 11/15/20 18:00 Nitroglycerin Oint 1 Inch/Gm Packet TOPICAL Q6HR ERICA Intake and Output 11/14/20 11/15/20 11/15/20 22:59 06:59 14:59 Other: Weight 95.254 kg Patient Weight 11/16/20 06:59 Weight 95.254 kg 11/15/20 12:06 11/15/20 12:06
[2020-11-15] MEDS: lisinopriL 5 MG TAB PO SCH (15:08)
--- NOTE | 2020-11-15 15:20 | P.HPIM ---
History of Present Illness 60-year-old the pleasant female came in with complains of a left jaw pain which started today lasted for 45 minutes also chest pain at that time along with some shortness of breath lightheadedness and diaphoresis. Patient had an episode of lightheadedness and chest pressure about 3 weeks ago after drinking tequila. Patient denied any fever chills patient chest pain is nonpleuritic in nature not associated with food. Patient's EKG showed 1 mm depressions in the lateral leads. Chest x-ray did not show any significant abnormality troponins are negative.patient does have significant family history of coronary artery disease which is premature coronary artery disease in her father. Review of Systems REVIEW OF SYSTEMS: CONSTITUTIONAL: No fever, no malaise, no fatigue. HEENT: No recent visual problems or hearing problems. Denied any sore throat. CARDIOVASCULAR: No orthopnea, PND, no palpitations, no syncope. PULMONARY: No shortness of breath, no cough, no hemoptysis. GASTROINTESTINAL: No diarrhea, no nausea, no vomiting, no abdominal pain. NEUROLOGICAL: No headaches, no weakness, no numbness. HEMATOLOGICAL: Denies any bleeding or petechiae. GENITOURINARY: Denies any burning micturition, frequency, or urgency. MUSCULOSKELETAL/RHEUMATOLOGICAL: Denies any joint pain, swelling, or any muscle pain. ENDOCRINE: Denies any polyuria or polydipsia. The rest of the 14-point review of systems is negative. Past Medical History Past Medical History: No Reported History Additional Past Medical History / Comment(s): pneumonia Jun 29, thru end of Jul,steroids Jul 2016,constipation,hemorrhoids History of Any Multi-Drug Resistant Organisms: None Reported Past Surgical History: Back Surgery, Cholecystectomy, Hysterectomy Past Anesthesia/Blood Transfusion Reactions: Family History of Problems w/ Anesthesia, Motion Sickness, Postoperative Nausea & Vomiting (PONV) Additional Past Anesthesia/Blood Transfusion Reaction / Comment(s): brother and sister both have PONV Past Psychological History: No Psychological Hx Reported Smoking Status: Never smoker Past Alcohol Use History: Occasional Past Drug Use History: None Reported - Past Family History Mother Family Medical History: Cancer Additional Family Medical History / Comment(s): colon,lung. mother's mom colon CA Father Family Medical History: Cancer Additional Family Medical History / Comment(s): prostate Brother(s) Family Medical History: Cancer Additional Family Medical History / Comment(s): prostate Medications and Allergies Home Medications Medication Instructions Recorded Confirmed Type Naproxen Sodium [Aleve] 220 mg PO ONETIME PRN 11/15/20 11/15/20 History Allergies Allergy/AdvReac Type Severity Reaction Status Date / Time azithromycin AdvReac yeast Verified 11/15/20 12:40 infection meclizine [From [facility]] AdvReac Chest Pain Verified 11/15/20 12:40 Physical Exam Vitals: Vital Signs Temp Pulse Resp BP Pulse Ox 11/15/20 13:19 62 18 165/95 98 11/15/20 12:14 65 18 169/97 98 11/15/20 11:05 97.9 F 101 H 18 172/89 98 Intake and Output 11/15/20 11/15/20 11/15/20 06:59 14:59 22:59 Other: Weight 95.254 kg PHYSICAL EXAMINATION: GENERAL: The patient is alert and oriented x3, not in any acute distress. Well developed, well nourished. HEENT: Pupils are round and equally reacting to light. EOMI. No scleral icterus. No conjunctival pallor. Normocephalic, atraumatic. No pharyngeal erythema. No thyromegaly. CARDIOVASCULAR: S1 and S2 present. No murmurs, rubs, or gallops. PULMONARY: Chest is clear to auscultation, no wheezing or crackles. ABDOMEN: Soft, nontender, nondistended, normoactive bowel sounds. No palpable organomegaly. MUSCULOSKELETAL: No joint swelling or deformity. EXTREMITIES: No cyanosis, clubbing, or pedal edema. NEUROLOGICAL: Gross neurological examination did not reveal any focal deficits. SKIN: No rashes. Results CBC & Chem 7: 11/15/20 12:06 11/15/20 12:06 Labs: Abnormal Lab Results - Last 24 Hours (Table) 11/15/20 Range/Units 12:06 Alkaline Phosphatase 132 H (38-126) U/L Assessment and Plan Plan: -chest pain we'll rule out acute coronary syndromes , patient does have typical features for cardiac chest pain. We'll repeat 2 more sets of troponins and EKGs depending on that patient may end up needing stress test or cardiac catheterization. -back pain
[2020-11-15] MEDS: NITROGLYCERIN OINT 1 INCH/GM PACKET TOPICAL SCH (21:01)
[2020-11-16] MEDS: NITROGLYCERIN OINT 1 INCH/GM PACKET TOPICAL SCH ×2 (03:57→05:32)
[2020-11-16] MEDS: lisinopriL 5 MG TAB PO SCH (07:19)
[2020-11-16] MEDS ORDERED: ASPIRIN 81 MG PO SCH (09:00)
[2020-11-16] MEDS ORDERED: ASPIRIN 325 MG TAB PO SCH (09:00)
--- NOTE | 2020-11-16 10:32 | P.PN ---
Subjective Progress Note Date: 11/16/20 HISTORY OF PRESENT ILLNESS: This is a 60-year-old female with no significant past medical history. She is a nonsmoker. She reports occasional alcohol use. She does have a family history of coronary artery disease and states her dad had a CABG when he was in his 50s and her mom had a CABG in her early 60s. 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 Durham. We have been asked to see the patient in consultation for chest pain. Patient examined at the bedside in the emergency room. Patient states 3 weeks ago she was on vacation with her family. She states she was relaxing in a pool and her daughter brought her a drink made with tequila. She states shortly afterwards she began having severe chest pain and felt like somebody was sitting on her chest. She also reports dizziness and states she thought she was going to pass out. She got out of the pool and went to sit down and states the pain went away on its own in about 45 minutes. Patient reports this morning she got up for work in was having left jaw pain. She took some Advil and went to work. She was telling a coworker about her jaw pain and her coworker told her this could be a sign of heart attack so she came to the emergency room. Patient reports mild chest pressure this morning but nothing like she experienced 3 weeks ago. She denies nausea or vomiting. She denies shortness of breath at rest but reports occasional shortness of breath with exertion. She also reports occasionally getting lightheaded and sweaty over the past couple weeks. Patient's pain is worse with deep inspiration. Patient is also having tenderness with chest wall palpation. Patients blood pressure is elevated in the ER with a systolic in the 160-170s. Patient states she checks her blood pressure at home and it usually r EKG reveals sinus mechanism with [address] depression and high lateral leads Chest xray negative for acute process Laboratory data: WBC 5.8. Hemoglobin 14.0. Platelet count 234. D-dimer 0.29. Sodium 141. Potassium 4.0. BUN 15. Creatinine 0.78. Magnesium 2.0. Troponin negative 1. Current home cardiac medications include none 11/16/2020 Patient examined this morning at the bedside. Patient denies any further chest pain or pressure. She denies shortness of breath. Troponins negative 3. PHYSICAL EXAM: VITAL SIGNS: Reviewed. GENERAL: Well-developed in no acute distress. HEENT: Head is normocephalic. Pupils are equal, round. Sclerae anicteric. Mucous membranes of the mouth are moist. Neck supple. No JVD or thyromegaly LUNGS: Respirations even and unlabored. Lungs essentially clear to auscultation bilaterally. HEART: Regular rate and rhythm. S1 and S2 heard. EXTREMITIES: Normal range of motion. No clubbing or cyanosis. Peripheral pulses intact. No lower extremity edema ASSESSMENT: Chest pain with typical and atypical features Hypertensive in ER, denies hx of HTN, improved Occasional alcohol use Family history of coronary artery disease PLAN: Continue current cardiac medications Discontinue nitro paste 2-D echo ordered. Await results Patient to undergo stress echo today to assess for reversible ischemia. If negative she may be discharged home from a cardiac standpoint Further recommendations pending patient course Nurse practitioner note has been reviewed by physician. Signing provider agrees with the documented findings, assessment, and plan of care. Objective - Vital Signs Vital signs: Vital Signs Temp 97.7 F 11/16/20 06:54 Pulse 65 11/16/20 08:00 Resp 16 11/16/20 08:00 BP 118/73 11/16/20 06:54 Pulse Ox 94 L 11/16/20 06:54 Intake & Output 11/15/20 11/16/20 11/16/20 18:59 06:59 18:59 Weight 95.254 kg Other: Voiding Method Toilet # Voids 1 - Labs CBC & Chem 7: 11/15/20 12:06 11/15/20 12:06 Labs: Abnormal Lab Results - Last 24 Hours (Table) 11/15/20 Range/Units 12:06 Alkaline Phosphatase 132 H (38-126) U/L
[2020-11-16 12:27] LABS: Chol/HDL Ratio 3.4; LDL Cholesterol,Calculated 103.2 mg/dL (0.0-131.0); VLDL Calculation 23.8 mg/dL (5.00-40.00)
--- NOTE | 2020-11-16 13:20 | ECHOF ---
Referral Reason:chest pain MEASUREMENTS -------- HEIGHT: 170.2 cm WEIGHT: 95.3 kg BP: 123/62 RVIDd: 3.8 cm (< 3.3) IVSd: 1.0 cm (0.6 - 1.1) LVIDd: 4.5 cm (3.9 - 5.3) LVPWd: 0.9 cm (0.6 - 1.1) IVSs: 1.2 cm LVIDs: 3.2 cm LVPWs: 1.5 cm LAESV Index (A-L): 25.16 ml/m Ao Diam: 2.4 cm (2.0 - 3.7) AV Cusp: 2.0 cm (1.5 - 2.6) LA Diam: 3.7 cm (2.7 - 3.8) MV EXCURSION: 15.135 mm (> 18.000) MV EF SLOPE: 63 mm/s (70 - 150) EPSS: 0.2 cm MV E Aris: 1.00 m/s MV DecT: 238 ms MV A Aris: 0.77 m/s MV E/A Ratio: 1.30 RAP: 5.00 mmHg RVSP: 38.83 mmHg FINDINGS -------- Sinus rhythm. This was a technically adequate study. The left ventricular size is normal. Left ventricular wall thickness is normal. Overall left vent ricular systolic function is normal with, an EF between 55 - 60 %. The diastolic filling pattern is normal for the age of the patient 11.49. The right ventricle is mild to moderately enlarged. Normal LA size by volume 22+/-6 ml/m2. The right atrial size is normal. Interatrial and interventricular septum intact. The aortic valve is trileaflet and appears structurally normal. The mitral valve is normal. No mitral regurgitation. The tricuspid valve appears structurally normal. Mild tricuspid regurgitation present. There is m ild pulmonary hypertension. The right ventricular systolic pressure, as measured by Doppler, is 38. 83mmHg. There is no pulmonic regurgitation present. The aortic root size is normal. IVC Not well visulized. There is no pericardial effusion. CONCLUSIONS -------- 1. Left ventricular wall thickness is normal. 2. Overall left ventricular systolic function is normal with, an EF between 55 - 60 %. 3. The right ventricle is mild to moderately enlarged. 4. Normal LA size by volume 22+/-6 ml/m2. 5. The aortic valve is trileaflet and appears structurally normal. 6. The mitral valve is normal. 7. Mild tricuspid regurgitation present. 8. There is mild pulmonary hypertension. 9. There is no pericardial effusion. REGIONAL SALES MANAGER: Ling Garvin RDCS
--- NOTE | 2020-11-16 14:06 | ECHOS ---
STRESS ECHOCARDIOGRAM DATE OF SERVICE: LUMASON: @@ Vial INDICATIONS: @@ MEDICATIONS: @@ BASELINE HEART RATE: @@ BASELINE BLOOD PRESSURE: @@ MAXIMUM HEART RATE: @@ MAXIMUM BLOOD PRESSURE: @@ 85% MPHR: @@ 100% MPHR: @@ METS: @@ MAXIMUM STAGE REACHED: @@ TOTAL EXERCISE TIME: @@ RESULTS: Baseline rhythm is sinus mechanism, rate of 59, normal axis and intervals. Nonspecific ST-T wave changes. Baseline blood pressure 123/62 mmHg. Patient exercised on Sergio protocol for 7 minutes reaching peak rate 146 beats per minute which is equal to 92% of maximum predicted heart rate. Peak blood pressure 202/61 mmHg. Test was terminated secondary to fatigued. There was no chest pain. Electrocardiograph monitoring revealed rare PVCs. There was no evidence of diagnostic ischemic ST deviation. FINDINGS: Baseline echocardiogram revealed normal wall motion. At peak exercise, there was normal wall motion augmentation with no hypokinesis or dyskinesis. CONCLUSION: 1. Average exercise tolerance with normal echocardiograph response to exercise. 2. Normal stress echocardiogram with no evidence of stress-induced ischemia. MMODL / IJN: [id number] /
[2020-11-16 14:24] VITALS: BP 130/75; PULSE 72; RESP 18; TEMP 98
--- NOTE | 2020-11-16 16:36 | P.DS ---
Providers Date of admission: 11/15/20 13:32 Expected date of discharge: 11/16/20 Attending physician: Cornelio Pradhan Primary care physician: Refugio Chase Hospital Course: Final diagnosis Chest pain, ruled out acute coronary syndrome Back pain Left jaw pain Full code Discharge disposition Patient is being discharged in a stable condition with guarded prognosis to home. Patient will follow-up with Dr. Chase upon discharge. Patient will also follow-up with cardiology Dr. Liu in one week. Total time taken is greater than 35 minutes. Hospital course This is a 60-year-old female who was recently admitted with left jaw pain along with some chest pain and shortness of breath and was being closely monitored. She was seen and evaluated by cardiology and underwent stress echo which was negative and echo was normal and will follow-up outpatient with Dr. Liu in the clinic in one week. Patient's lipid panel within normal limits and serial troponins remained negative. Patient states that the jaw pain is intermittent and does have an appointment with her dentist this week for evaluation. Currently no reports of chest pain, shortness of breath, or palpitations. Patient is afebrile. No reports of nausea or vomiting and patient is tolerating diet. Patient will be discharged home today. On exam vital signs are stable. Cardio S1, S2 are muffled. Respiratory shows diminished breath sounds at the bases with no wheezing or rhonchi noted. Abdomen is soft and nontender. Nervous system shows no focal deficits. Please refer to medication reconciliation sheet for a list of medications. Patient Condition at Discharge: Stable Plan - Discharge Summary New Discharge Prescriptions: New lisinopriL [Zestril] 5 mg PO DAILY #90 tablet Continue Naproxen Sodium [Aleve] 220 mg PO ONETIME PRN PRN Reason: JAW PAIN Discharge Medication List Naproxen Sodium [Aleve] 220 mg PO ONETIME PRN 11/15/20 [History] lisinopriL [Zestril] 5 mg PO DAILY #90 tablet 11/16/20 [Rx] Follow up Appointment(s)/Referral(s): Kevin Liu MD [STAFF PHYSICIAN] - 1 Week (Keep previous appointment time) Refugio Chase DO [Primary Care Provider] - 1-2 days Patient Instructions/Handouts: Chest Pain (DC), Stress Echocardiogram (DC) Activity/Diet/Wound Care/Special Instructions: Activity Limited until follow-up Follow-up with primary care provider upon discharge Follow-up with Dr. Liu outpatient as scheduled Continue heart healthy diet Discharge Disposition: HOME SELF-CARE
== END 2020-11-16 14:35 | disposition home or self-care (01) ==
LOC: EC 11:00 → 6NMEDSUR 13:32
PROVIDERS: ADMIT Internal Medicine; ATTEND Internal Medicine
DX: R07.89 Other chest pain (principal); R68.84 Jaw pain; R03.0 Elevated blood-pressure reading, without diagnosis of hypertension; I27.20 Pulmonary hypertension, unspecified; I36.1 Nonrheumatic tricuspid (valve) insufficiency; R06.02 Shortness of breath; R61 Generalized hyperhidrosis; R42 Dizziness and giddiness; K59.00 Constipation, unspecified; K64.9 Unspecified hemorrhoids; M54.9 Dorsalgia, unspecified; Z20.822 Contact with and (suspected) exposure to COVID-19; Z88.1 Allergy status to other antibiotic agents; Z88.8 Allergy status to other drugs, medicaments and biological substances; Z87.01 Personal history of pneumonia (recurrent); Z90.49 Acquired absence of other specified parts of digestive tract; Z90.710 Acquired absence of both cervix and uterus; Z82.49 Family history of ischemic heart disease and other diseases of the circulatory system; Z84.89 Family history of other specified conditions; Z80.0 Family history of malignant neoplasm of digestive organs; Z80.1 Family history of malignant neoplasm of trachea, bronchus and lung; Z80.42 Family history of malignant neoplasm of prostate
CPT/HCPCS: 93005 ×2; 99285; 36415; 93306; 93351; 85379; 83880; 80061; 80053; 83735; 84484; 85025; 85610; 85730; 87635; 71046; G0378 ×2

== ENCOUNTER → 2021-04-14 | Outpatient (CLI) | payer OTHER ==
--- NOTE | 2021-04-19 09:05 | MM ---
Reason for exam: screening (asymptomatic). Last mammogram was performed 11 months ago. History: Patient is postmenopausal. Family history of premenopausal breast cancer in sister at age 51. Physical Findings: A clinical breast exam by your physician is recommended on an annual basis and results should be correlated with mammographic findings. MG 3D Screening Mammo W/Cad Bilateral CC and MLO view(s) were taken. Prior study comparison: May 06, 2020, bilateral MG 3d screening mammo w/cad. March 17, 2019, bilateral MG 3d screening mammo w/cad. There are scattered fibroglandular densities. There is chronic nodularity bilaterally. No significant changes when compared with prior studies. ASSESSMENT: Benign, BI-RAD 2 RECOMMENDATION: Routine screening mammogram of both breasts in 1 year.
== END | disposition home or self-care (01) ==
LOC: RADMAMWWP 11:49
PROVIDERS: ATTEND Obstetrics & Gynecology
DX: Z12.31 Encounter for screening mammogram for malignant neoplasm of breast (principal); Z78.0 Asymptomatic menopausal state; Z80.3 Family history of malignant neoplasm of breast
CPT/HCPCS: 77063; 77067

== ENCOUNTER → 2021-05-10 | Outpatient (CLI) | payer OTHER ==
--- NOTE | 2021-05-11 06:49 | US ---
EXAMINATION TYPE: US pelvic complete DATE OF EXAM: 05/10/2021 COMPARISON: NONE CLINICAL HISTORY: R10.2 PELVIC PAIN. Pelvic pain for the past 3-4 months with history of hysterectomy TECHNIQUE: Transabdominal (TA). Date of LMP: 2004 EXAM MEASUREMENTS: Uterus: Surgically absent cm Endometrial Stripe: Surgically absent cm Right Ovary: 2.5 x 2.0 x 2.1 cm Left Ovary: 3.3 x 2.5 x 2.2 cm 1. Uterus: Surgically absent 2. Endometrium: Surgically absent 3. Right Ovary: Hypoechoic 4. Left Ovary: Hypoechoic 5. Bilateral Adnexa: wnl 6. Posterior cul-de-sac: wnl IMPRESSION: Unremarkable postoperative pelvis.
== END | disposition home or self-care (01) ==
LOC: RADUSWWP 16:03
PROVIDERS: ATTEND Obstetrics & Gynecology
DX: R10.2 Pelvic and perineal pain (principal)
CPT/HCPCS: 76856

== ENCOUNTER → 2021-08-29 | Outpatient (CLI) | payer OTHER ==
[2021-08-29 10:13] LABS: Basophils # (A) 0.07 X 10*3/uL (0.00-0.10); Basophils % (A) 1.2 %; Eosinophils # (A) 0.48 X 10*3/uL (0.04-0.35); Eosinophils % (A) 8.5 %; HCT 41.7 % (37.2-46.3); HGB 13.9 g/dL (12.0-15.0); Immature Grans, Automated 0.2 %; Lymphocytes # (A) 2.14 X 10*3/uL (0.90-5.00); Lymphocytes % (A) 37.7 %; MCH 30.5 pg (27.0-32.0); MCHC 33.3 g/dL (32.0-37.0); MCV 91.6 fL (80.0-97.0); Mean Platelet Volume 11.1 fL (9.5-12.2); Monocytes # (A) 0.38 X 10*3/uL (0.20-1.00); Monocytes % (A) 6.7 %; NRBC Per 100 WBC 0 /100 WBCS (0.0-0.0); Neutrophils % (A) 45.7 %; Platelet Count 252 X 10*3/uL (140-440); RBC 4.55 X 10*6/uL (4.10-5.20); WBC 5.68 X 10*3/uL (4.50-10.00)
[2021-08-29 10:31] LABS: ALT 12 U/L (8-44); AST 19 U/L (13-35); African American GFR (CKD) 93.5 (60.0-200.0); Albumin 4.5 g/dL (3.8-4.9); Albumin/Globulin Ratio 1.55 (1.60-3.17); Alkaline Phosphatase 133 U/L (41-126); BUN/Creat Ratio 12.25 Ratio (12.00-20.00); Blood Urea Nitrogen 9.8 mg/dL (9.0-27.0); Calcium 9.4 mg/dL (8.7-10.3); Carbon Dioxide 21.9 mmol/L (20.0-27.5); Chloride 105 mmol/L (96-109); Chol/HDL Ratio 3.66 Ratio; Globulin 2.9 g/dL (1.6-3.3); Glucose 102 mg/dL (70-110); LDL Cholesterol,Calculated 109.9 mg/dL (0.0-131.0); Non-African American GFR(CKD) 80.7 (60.0-200.0); Sodium 140 mmol/L (135-145); Total Protein 7.4 g/dL (6.2-8.2)
== END | disposition home or self-care (01) ==
LOC: LABWHC1 07:08
PROVIDERS: ATTEND Internal Medicine Critical Care Medicine
DX: Z00.00 Encounter for general adult medical examination without abnormal findings (principal); E55.9 Vitamin D deficiency, unspecified; B17.9 Acute viral hepatitis, unspecified; D64.9 Anemia, unspecified
CPT/HCPCS: 36415; 80053; 80061; 83036; 84439; 84480; 85025

== ENCOUNTER → 2022-02-26 | Outpatient (CLI) | payer OTHER ==
--- NOTE | 2022-02-27 10:53 | MM ---
Reason for Exam: Screening (asymptomatic). Last screening mammogram was performed 10 month(s) ago. Patient History: Menarche at age 15. First Full-Term at age 18. Hysterectomy at age 44. Postmenopausal. Sister had breast cancer, age 51. Risk Values: Rae 5 year model risk: 2.6%. NCI Lifetime model risk: 13.5%. Prior Study Comparison: 03/17/2019 Bilateral Screening Mammogram, [facility]. 05/06/2020 Bilateral Screening Mammogram, [facility]. 04/14/2021 Bilateral Screening Mammogram, [facility]. Tissue Density: There are scattered fibroglandular densities. Findings: Analyzed By CAD. Chronic reniform nodularity on both sides compatible with intramammary lymph nodes. No significant change from prior exams. Overall Assessment: Benign, BI-RAD 2 Management: Screening Mammogram of both breasts in 1 year. 1. Patient should continue monthly self breast exams. 2. A clinical breast exam by your physician is recommended on an annual basis. 3. This exam should not preclude additional follow-up of suspicious palpable abnormalities. Electronically signed and approved by: Shane Akbar M.D. Radiologist
== END | disposition home or self-care (01) ==
LOC: RADMAMWWP 11:15
PROVIDERS: ATTEND Internal Medicine Critical Care Medicine
DX: Z12.31 Encounter for screening mammogram for malignant neoplasm of breast (principal); Z78.0 Asymptomatic menopausal state; Z80.3 Family history of malignant neoplasm of breast
CPT/HCPCS: 77063; 77067

== ENCOUNTER → 2022-09-11 | Outpatient (CLI) | payer OTHER ==
[2022-09-11 11:22] LABS: Basophils # (A) 0.06 X 10*3/uL (0.00-0.10); Basophils % (A) 1.3 %; Eosinophils # (A) 0.34 X 10*3/uL (0.04-0.35); Eosinophils % (A) 7.1 %; HCT 41.9 % (37.2-46.3); HGB 13.9 g/dL (12.0-15.0); Immature Grans, Automated 0.4 %; Lymphocytes # (A) 1.83 X 10*3/uL (0.90-5.00); Lymphocytes % (A) 38.2 %; MCH 30.7 pg (27.0-32.0); MCHC 33.2 g/dL (32.0-37.0); MCV 92.5 fL (80.0-97.0); Mean Platelet Volume 11.6 fL (9.5-12.2); Monocytes # (A) 0.38 X 10*3/uL (0.20-1.00); Monocytes % (A) 7.9 %; NRBC Per 100 WBC 0 /100 WBCS (0.0-0.0); Neutrophils # (A) 2.16 X 10*3/uL (1.80-7.70); Neutrophils % (A) 45.1 %; Platelet Count 243 X 10*3/uL (140-440); RBC 4.53 X 10*6/uL (4.10-5.20); RDW 12.6 % (11.5-14.5); WBC 4.79 X 10*3/uL (4.50-10.00)
[2022-09-11 11:42] LABS: ALT 15 U/L (8-44); AST 17 U/L (13-35); African American GFR (CKD) 85.6 (60.0-200.0); Albumin 4.5 g/dL (3.8-4.9); Albumin/Globulin Ratio 1.72 (1.60-3.17); Alkaline Phosphatase 130 U/L (41-126); BUN/Creat Ratio 14.49 Ratio (12.00-20.00); Blood Urea Nitrogen 12.4 mg/dL (9.0-27.0); Calcium 9.3 mg/dL (8.7-10.3); Carbon Dioxide 24.7 mmol/L (20.0-27.5); Chloride 105 mmol/L (96-109); Globulin 2.6 g/dL (1.6-3.3); Glucose 99 mg/dL (70-110); Non-African American GFR(CKD) 73.8 (60.0-200.0); Potassium 4.2 mmol/L (3.5-5.5); Sodium 138 mmol/L (135-145)
== END | disposition home or self-care (01) ==
LOC: LABWHC1 07:09
PROVIDERS: ATTEND Internal Medicine Critical Care Medicine
DX: Z00.00 Encounter for general adult medical examination without abnormal findings (principal); E55.9 Vitamin D deficiency, unspecified
CPT/HCPCS: 36415; 80053; 80061; 82306; 83036; 84439; 84443; 85025

== ENCOUNTER → 2022-11-09 | Outpatient (CLI) | payer OTHER ==
--- NOTE | 2022-11-12 12:12 | MM ---
Reason for Exam: Screening (asymptomatic). Last screening mammogram was performed 9 month(s) ago. Patient History: Menarche at age 15. First Full-Term at age 18. Hysterectomy at age 44. Postmenopausal. Currently using Estrogen, starting at age 62. Sister had breast cancer, age 51. Risk Values: Rae 5 year model risk: 2.7%. NCI Lifetime model risk: 13.2%. Prior Study Comparison: 05/06/2020 Bilateral Screening Mammogram, [facility]. 04/14/2021 Bilateral Screening Mammogram, [facility]. 02/26/2022 Bilateral MG 3D screening mammo w/cad, [facility]. Tissue Density: There are scattered fibroglandular densities. Findings: Analyzed By CAD. Pattern appears symmetrical and stable. No significant interval change is evident. There is a stable nodule which may be an intramammary lymph node in the upper outer anterior right breast. No significant interval change. No suspicious groups of microcalcifications, spiculated or lobular masses, architectural distortion or other secondary signs of malignancy are mammographically apparent. Overall Assessment: Benign, BI-RAD 2 Management: Screening Mammogram of both breasts in 1 year. A negative mammogram report should not preclude additional follow up of suspicious palpable abnormalities. Patient should continue monthly self breast exam. A clinical breast exam by your physician is recommended on an annual basis and results should be correlated with mammographic findings. Electronically signed and approved by: Bryan Barrera D.O. Radiologis
== END | disposition home or self-care (01) ==
LOC: RADMAMWWP 10:17
PROVIDERS: ATTEND Internal Medicine Critical Care Medicine
DX: Z12.31 Encounter for screening mammogram for malignant neoplasm of breast (principal); Z78.0 Asymptomatic menopausal state; Z80.3 Family history of malignant neoplasm of breast
CPT/HCPCS: 77063; 77067

== ENCOUNTER → 2023-05-01 | Outpatient (CLI) | payer OTHER ==
--- NOTE | 2023-05-01 10:35 | CT ---
Examination: CT cervical spine with contrast. Date: 05/01/2023. Comparison: None available. Clinical History: A radiating down left side. Technique: Axial images of the cervical spine were obtained with contrast. 100 mL of Isovue-300 was g iven intravenously. Coronal and sagittal reformats were performed. CT dose lowering techniques were u sed, to include: automated exposure control, adjustment for patient size, and/or use of iterative rec onstruction. Findings: The vertebral bodies are well aligned without evidence of fracture, subluxation, or dislocation. There is moderate degenerative disc space narrowing at C5-6 and mild at C6-7. There is a disc osteoph yte complex at C5-6 causing a mild to moderate central canal stenosis. Bilateral mild neural foramina l stenosis is also seen at this level. Multilevel degenerative facet changes are also seen throughout the spine as well as uncovertebral joint arthropathy. IMPRESSION: 1. Multilevel degenerative changes as described above. May be better evaluated by MRI. 2. No fracture, subluxation or dislocation.
== END | disposition home or self-care (01) ==
LOC: RADCTMAIN 09:34
PROVIDERS: ATTEND Internal Medicine Critical Care Medicine
DX: M47.812 Spondylosis without myelopathy or radiculopathy, cervical region (principal)
CPT/HCPCS: 72126; Q9967

== ENCOUNTER → 2023-05-02 | Outpatient (CLI) | payer OTHER ==
--- NOTE | 2023-05-02 11:47 | BD ---
EXAMINATION TYPE: Axial Bone Density DATE OF EXAM: 05/02/2023 CLINICAL HISTORY: 62 years old Female. ICD-10 CODE: Z78.0 POST MENOPAUSAL WITHOUT HRT Height: 66 in Weight: 223 lbs FRAX RISK QUESTIONS: Family History (Parent hip fracture): yes father History of Fracture in Adulthood: t spine fx age 45; Secondary Osteoporosis: 3. Menopause before 45: age 44 partial hysterectomy RISK FACTORS HISTORY OF: Spine Fracture: t spine fx age 47 Surgery to Spine: l spine surgery 2019 Active: yes Postmenopausal woman: partial hysterectomy age 44 Take estrogen and/or progesterone medications: yes How lon months MEDICATIONS: Additional Medications: multi vitamin, EXAM MEASUREMENTS: Bone mineral densitometry was performed using the [employer] System. pt had l-spine surgery 2019 Bone mineral density about the R hip (g/cm2): 1.115 Bone mineral density about the L hip (g/cm2): 1.107 T Score values are as follows: -----R Neck: 0.3 -----L Neck: -0.2 -----R Total: 0.8 -----L Total: 0.8 Z Score values are as follows: -----R Neck: 0.8 -----L Neck: 0.3 -----R Total: 1.0 -----L Total: 0.9 Bone mineral density has: Decreased -7.2% since study of: 02/08/2017 Bone mineral density about the L Wrist (g/cm2): 0.743 T Score values are as follows: -----Dist. R+U: 2.5 -----Prox. R+U: 0.0 -----Radius total: 1.1 Z Score values are as follows: -----Dist. R+U: 3.4 -----Prox. R+U: 1.0 -----Radius total: 2.1 Bone mineral density baseline FRAX%s: The graph provided illustrates a 20.2% chance for a major osteoporotic fx and a 0.3% chance f or the hips probability for fx in 10 years time. IMPRESSION: Normal (Values between +1 and -1 indicate normal bone mass). Consider repeating this study in 5 year s or sooner if there is some new clinical indication. NOTE: T-SCORE=SD OF THE YOUNG ADULT MEAN.
== END | disposition home or self-care (01) ==
LOC: RADBDWWP 07:44
PROVIDERS: ATTEND Obstetrics & Gynecology
DX: Z78.0 Asymptomatic menopausal state (principal)
CPT/HCPCS: 77080

== ENCOUNTER → 2023-05-16 | Outpatient (CLI) | payer OTHER ==
--- NOTE | 2023-05-16 16:14 | MR ---
EXAMINATION TYPE: MR cervical spine wo con DATE OF EXAM: 05/16/2023 COMPARISON: None HISTORY: NECK PAIN FOR SEVERAL MONTHS WITH HEADACHES CONTRAST: Performed utilizing mL intravenous gadolinium contrast. TECHNIQUE: Multiplanar multiecho imaging on a 3.0 Alda magnet is performed through the cervical spin e. FINDINGS: The craniovertebral junction is normal. Vertebral body alignment is normal. C7-T1: No focal disc herniation or significant disc bulge is evident. No spinal canal stenosis or n eural foraminal stenosis is present. C6-7: Broad-based disc bulge has moderate anterior thecal sac compression. Cord contact is not eviden t although this comes in close approximation with the spinal cord. No AP spinal canal stenosis is pre sent. Mild bilateral foraminal narrowing is present. C5-6: There is a large broad right paracentral disc herniation with significant anterior thecal sac c ompression. Cord contact and cord flattening is present. Spinal canal stenosis is present measuring 0 .6 cm. There may be some increased signal within the spinal cord at this level. Uncovertebral joint h ypertrophy is severe foraminal stenosis bilaterally. C4-5: No focal disc herniation or significant disc bulge is evident. No spinal canal stenosis or shawna ral foraminal stenosis is present.. C3-4: No focal disc herniation or significant disc bulge is evident. No spinal canal stenosis or shawna ral foraminal stenosis is present. C2-3: No focal disc herniation or significant disc bulge is evident. No spinal canal stenosis or shawna ral foraminal stenosis is present. IMPRESSION: 1. Large C5-6 right paracentral disc herniation with marked anterior thecal sac impression without co rd compression and AP spinal canal stenosis. Some signal change within the spinal cord is on T2 seque nces. Note is made of bilateral foraminal stenosis of malignancy by 6 level. 2. Moderate size disc herniation C6-7 comes in close approximation with the spinal cord without steno sis or cord deformity.
== END | disposition home or self-care (01) ==
LOC: RADMRIMAIN 14:19
PROVIDERS: ATTEND Orthopaedic Surgery
DX: M50.222 Other cervical disc displacement at C5-C6 level (principal); M48.02 Spinal stenosis, cervical region; M99.71 Connective tissue and disc stenosis of intervertebral foramina of cervical region
CPT/HCPCS: 72141

== ENCOUNTER → 2023-06-05 | Outpatient (CLI) | payer OTHER ==
[2023-06-06 02:29] LABS: HCT 45.7 % (37.2-46.3); HGB 14.8 g/dL (12.0-15.0); MCH 30.6 pg (27.0-32.0); MCHC 32.4 g/dL (32.0-37.0); MCV 94.4 FL (80.0-97.0); Mean Platelet Volume 11.2 FL (9.5-12.2); NRBC Per 100 WBC 0 X 10*3/uL (0.00-0.01); Platelet Count 274 X 10*3/uL (140-440); RBC 4.84 X 10*6/uL (4.10-5.20); RDW 13.2 % (11.5-14.5); WBC 8.09 X 10*3/uL (4.50-10.00)
[2023-06-06 03:22] LABS: ALT 14 U/L (8-44); AST 15 U/L (13-35); Albumin 4.6 g/dL (3.8-4.9); Alkaline Phosphatase 116 U/L (41-126); Blood Urea Nitrogen 15.2 mg/dL (9.0-27.0); Carbon Dioxide 23.7 mmol/L (21.6-31.8); Chloride 105 mmol/L (96-109); Globulin 2.7 g/dL (1.6-3.3); Glucose 87 mg/dL (70-110); Potassium 4.4 mmol/L (3.5-5.5); Sodium 142 mmol/L (135-145); Total Bilirubin 0.3 mg/dL (0.3-1.2); Total Protein 7.3 g/dL (6.2-8.2)
[2023-06-06 04:49] LABS: INR 0.95 sec (0.93-1.11); Prothrombin Time 10.3 sec (9.9-11.9)
== END | disposition home or self-care (01) ==
LOC: LABWHC1 15:48
PROVIDERS: ATTEND Orthopaedic Surgery
DX: M47.12 Other spondylosis with myelopathy, cervical region (principal); M48.02 Spinal stenosis, cervical region
CPT/HCPCS: 36415; 80053; 82306; 85027; 85610; 86850; 86900; 86901; 87070; 93005

== ENCOUNTER 2023-06-11 05:36 | Observation (INO) | payer OTHER ==
[~2023-06-11 05:36] MED LIST changes: -LACTATED RINGERS 1,000 ML IV SCH; +TRANEXAMIC 1,000 MG/100ML-NACL 1,000 MG in SALINE 1 100ML.BAG IVPB PRN
[2023-06-11] MEDS ORDERED: DEXAMETHASONE SOD PHOSPHATE 4 MG/ML 1 ML VIAL IV ONE (05:56)
[2023-06-11] MEDS ORDERED: ONDANSETRON 4 MG/2 ML VIAL IVP ONE ×2 (05:56→06:36)
[2023-06-11] MEDS ORDERED: ACETAMINOPHEN TAB 500 MG TAB ONE (06:32)
[2023-06-11] MEDS ORDERED: ACETAMINOPHEN TAB 500 MG TAB PO ONE (06:35)
[2023-06-11] MEDS ORDERED: GABAPENTIN 300 MG CAP PO ONE (06:35)
[2023-06-11] MEDS ORDERED: SCOPOLAMINE 1 MG/72 HR PATCH TRANSDERM ONE (06:36)
[2023-06-11] MEDS ORDERED: DEXAMETHASONE SOD PHOSPHATE 4 MG/ML 1 ML VIAL IVP ONE (06:36)
[2023-06-11] MEDS: LACTATED RINGERS 1,000 ML IV SCH (06:39)
[2023-06-11] MEDS ORDERED: MIDAZOLAM 2 MG/2 ML VIAL IVP ONE (06:59)
--- NOTE | 2023-06-11 07:03 | P.PN ---
Progress Note - Text Progress Note Date: 06/11/23 History and Physical UPDATE I have seen and examined the patient and reviewed the history and physical. There appear to be no significant changes in the patient's current medical status as outlined in the current History and Physical.
--- NOTE | 2023-06-11 07:03 | P.HPOR ---
History of Present Illness H&P Date: 06/05/23 .D:Date: 06/05/23 : 02:12pm .T:Title: [facility] History and Physical Date of :64 [id number]: NKDA Age: 62 year Height: 5'6" Weight: 218 lbs BP:125/72 BMI: 35.19 kg/m2 Occupation: Retired VAS: 4 Hand:Right DOI:10 years ago (fall)/ DOS: N/A/ DOT: > 3 months CHIEF COMPLAINT: Re-check on neck pain TODAY'S VISIT: Ms. Chopra presents to the office today,06/05/23, for re-evaluation of her neck pain. She notes history of a fall and left shoulder injury that occured approximately 10 years ago. She states the shoulder was surgically repaired but her neck symptoms have remained relatively constant since the time of her fall and proceeding her shoulder procedure. The patient reports experiencing an intense, sharp, throbbing pain throughout the neck that radiates down into the bilateral upper extremities with a sharp, shooting quality. She states her upper extremity pain is associated with numbness and tingling. She notes progressive weakness throughout the bilateral upper extremities. She notes worsening hand dexterity bilaterally. The patient states her symptoms are exacerbated by all activity, which makes it very difficult for her to complete any of her activities of daily living. She states that ambulating her head to the left or right causes her most significant pain. She notes history of neck pain that shoots behind and around the right ear. The patient reports experiencing severe sleep disturbances related to her ongoing pain and associated symptoms. She states her symptoms have become intolerable. The patient has trialed conservative treatment measures in the form of physical therapy, physician directed at home stretches/exercises, medication management, activity modification, and at home heat/ice therapies all with no significant or sustained relief. The patient is currently taking Diclofenac and Flexeril for relief of her current symptoms. Otherwise patient denies any f/c/sob/cp, perineal numbness or tingling, bowel or bladder incontinence/retention. The patient ambulates independently today. HPI: Ms. Chopra presented to the office on 05/31/23, for a recheck of her cervical pain and cervical MRI results. Patient continues to report a pressure behind her right ear and a short sharp cervical pain that is chronic in nature. Patient denies any injury or trauma to indicate onset of symptoms. In addition to her cervical pain patient does report that it radiates intermittently to her bilateral upper extremities, right being greater than the left.Patient states her pain is worsened with laying down, sitting, and prolonged activity. Patient has completed physical therapy on 05/30/23 which she describes as very helpful with improvement to her range of motion. Patient has trialed the below listed treatment modalities with relief of the stiffness of her cervical spine. She is currently taking Flexeril and Celebrex for her pain and symptoms. Otherwise patient denies any f/c/sob/cp and is able to independently today.Otherwise patient denies any f/c/sob/cp, perineal numbness or tingling, bowel or bladder incontinence/retention. Patient is ambulatoryindependently. HISTORY: Imaging: No new xrays taken in office Trauma: Yes (fall) Work Related: No Activity Modification: Yes PT: Yes How many sessions? 12 Did it help? No Home Exercise: Yes, the patient has trialed the physician directed home exercise program without relief of their symptoms. Medications:Yes; List: Diclofenac & Flexeril Alternative Interventions: Chiropractic: No Massage therapy:No R.I.C.E:Yes Brace:No Injections:No RFA:No The patients' past social, medical, family, surgical history, as well as review of systems, have been reviewed. Please refer to the Neurosurgery History and Physical form that has been scanned in to our electronic medical record system. 16 points review of systems completed and as stated in HPI, all other systems reviewed are negative. Social History: Reviewed, see appropriate section of the chart for details. Family History: Reviewed, see appropriate section of the chart for details. P2 Past Medical History: Reviewed, see appropriate section of the chart for details. Current Medications: P1Rx: magnesium Ref: 0 Rx: multivitamin Ref: 0 Rx: cyclobenzaprine 5 mg tablet Ref: 0 Rx: estrogen 0.025% patches , Ref: 0 Rx: diclofenac potassium Ref: 0 Rx: gabapentin 300 mg capsule Ref: 0 PHYSICALEXAMINATION: General: AOX3, NAD, Well hydrate, Well nourished HEENT: No lumps or masses Heart: RRR, no murmur, no beni Lungs: CTAB, no w/r/r Extremities: No color changes, no pooling Hairy Patches: ABSENT Dorsal Skin Dimples: Normal [employer] spots: ABSENT Surgical Incisions: Muscle Appearance: Well formed, no atrophy Palpation: Midline: YES Paracervical: YES Parathoracic: NO Paralumbar: NO SIJ Testing: No TTP: No Postural Balance: Coronal: BALANCED Sagittal: BALANCED Shoulder height: LEVEL Pelvic Girdle: LEVEL ROM and Appearance: Neck: RESTRICTED Lumbar: UNRESTRICTED Shoulders: RESTRICTED Hips: Symmetrical Knees: Symmetrical Hands: Symmetrical Feet: Symmetrical VASCULAR STATUS: RUE- 2 LUE-2 RLE-2 LLE-2 Edema: NONE NEUROLOGICAL EXAMINATION: Mental Status: Awake, alert, oriented fully with normal attention, concentration and memory. Fluent appropriate speech. CRANIAL NERVES: I: Olfactory not tested. II: Visual acuity normal, no visual field deficit noted with confrontation. III,IV: Normal pupillary reflexes & intact extraocular movements without nystagmus. V,: Intact symmetrical facial sensation. VII: Intact symmetrical facial motor movementVIII: Hearing intact. IX,X: Intact gag, swallow, & normal voice. XI: Sternocleidomastoid, trapezius function intact. XII: Tongue midline with normal movements. TENSIONING: SLR-NEG Lhermittes- NEG Spurling's Sign- POSITIVE Cubital Percussion- NEG Tinels at wrist- NEG MOTOR EXAM (0-5/5, NT) Muscle appearance:Symmetrical, without signs of atrophy or dystrophy UPPER EXTREMITY RIGHT LEFT Shoulder Abduction 5 5 Biceps 4 4 Triceps 5 5 Wrist Extension 4 4 Hand Intrinsic 5 5 Clinical Geneticist 4 5 -Hand and finger dexterity intact bilaterally? NO -Dysdiadochokinesia examination negative bilaterally? YES LOWER EXTREMITY RIGHT LEFT Hip Flexion 5 5 Knee Extension 5 5 Knee Flexion 5 5 Dorsiflexion 5 5 Plantarflexion 5 5 EHL 5 5 FHL 5 5 REFLEXES (0-4/2, NT): RUE-3LUE-3 RLE-2 LLE-2 PATHOLOGICAL REFLEXES: Hoffmans: POSITIVE B/L Clonus: ABSENT BL Babinski: NEG BL Rectal Tone: INTACT SENSATION (0-4, NT): RUE-2LUE-2 RLE-2 LLE-2 Dermatomal deficit: C5-7 (RUE & LUE) GAIT AND FUNCTIONAL EVALUATION: Ambulatory aids- INDEPENDENT Rombergs test- NEG toe/heel walk- INTACT Squatting to a min of 60 deg and back- ABLE Single leg stance- ABLE Hand to finger (nose)- ABLE smooth Trendelenburg sign negative bilaterally RADIOGRAPHIC STUDIES: Xray of the Cervical Spine was completed on 05-13-2023 at [facility] These images were reviewed with the patient and show the following: Cervical spondylosis that is severe at C5-7 levels with near complete disc collapse, severe osteophyte formation anterior and posteriorly. No fracture. C0- 1 and C1-2 stable. C4-[address] [facility]completed at [facility] from 05/01/23 of CervicalSpine: Images reviewed with pt. Again, severe spondylosis noted C5-7 with large disc osteophyte complex posteriorly causing severe central stenosis and b/l foraminal stenosis at C5-6. There is moderate to severe stenosis at C6-7 due to disc herniation as well. Near complete disc collapse noted at these levels with vacuum like phenomena. MRI scancompleted at [facility] from05/16/23 of CervicalSpine: Images reviewed with pt. C5-6 large HNP with severe central and b/l foraminal stenosis. Myelomalacia at this level as well as starting at the C6-7 level due to compressive pathologies. There is HNP at C6-7 as well causing moderate to severe central and b/l foraminal stenosis. There is spondylosis at these levels as well. No fracture. No lesions. C0-1 and C1-2 stable. INCLUDEPICTURE P:\\\\ppart\\\\Files\\\\[id number] 1\\\\[id number]\\\\[id number]\\\\[id number]\\\\YBIO335\\\\HBXW165\\\\BROW878\\\\WAGD422\\\\AKHZ868\\\\LEVJ0 01\\\\ALKG560\\\\QRKI381\\\\RVZQ960\\\\KHOL265\\\\CCYH096\\\\WLUH448\\\\[id number]\\\\AISH712\\\\LEVS 011\\\\[id number]\\\\[id number].PNG \\d IMPRESSION: It was my pleasure to have seen and examined Ora. I reviewed the patient's clinical syndrome, physical findings, and imaging studies during the appointment today. It is my impression that the patient has a diagnosis of. 1. C5-7 spondylosis with stenosis, severe 2. Bilateral upper extremity radiculopathy 3. Bilateral upper extremity weakness 4. Cervical myelopathy .DX:Diagnosis: Cervical disc disorder with myelopathy : ICD10 = M50.00 / ICD9 = 722.71 / SNOMED = 57876058 .DX:Diagnosis: Atrophy of muscle of right hand : ICD10 = M62.541 / SNOMED = 553367873089684 .DX:Diagnosis: Degenerative cervical spinal stenosis : ICD10 = M48.02 / ICD9 = 723.0 / SNOMED = 080005589 .DX:Diagnosis: Muscle weakness of upper limb : ICD10 = M62.81 / SNOMED = 229096958 I outlined the natural course history without intervention and various interventional options. PLAN: Based on my findings I suggest the following course of action: -I discussed treatment options with the patient, including operative and non-operative options, and they have elected to proceed with the following surgical procedure: C5-7 Anterior cervical discecomty and fusion The indications, risks, benefits, and alternatives to surgery were discussed with the patient and family at length. Specifically (but not limited to) the risks of infection, stiffness, recurrence of symptoms, need for revision surgery, local numbness, neurovascular injury, and blood clots were discussed. The patient's questions were answered. The decision to proceed was made. Consent will be obtained for the procedure. - Ambulate daily - Take medications as directed - Ice and rest for pain and swelling control. Spine Surgery Risk Review Ms. Chopra is presenting for evaluation of neck and bilateral upper extremity pain, bilateral upper extremity numbness, tingling, and weakness, decreased hand dexterity bilaterally. It was my pleasure to have seen and examined Ms. Chopra. In our visit today we have had a chance to go over subjective complaints, physical examination findings and treatments including the natural course history without intervention and various interventional options. The patients imaging demonstrates: Xray of the Cervical Spine was completed on 05-13-2023 at [facility] These images were reviewed with the patient and show the following: Cervical spondylosis that is severe at C5-7 levels with near complete disc collapse, severe osteophyte formation anterior and posteriorly. No fracture. C0- 1 and C1-2 stable. C4-[address] scancompleted at [facility] from 05/01/23 of CervicalSpine: Images reviewed with pt. Again, severe spondylosis noted C5-7 with large disc osteophyte complex posteriorly causing severe central stenosis and b/l foraminal stenosis at C5-6. There is moderate to severe stenosis at C6-7 due to disc herniation as well. Near complete disc collapse noted at these levels with vacuum like phenomena. MRI scancompleted at [facility] from05/16/23 of CervicalSpine: Images reviewed with pt. C5-6 large HNP with severe central and b/l foraminal stenosis. Myelomalacia at this level as well as starting at the C6-7 level due to compressive pathologies. There is HNP at C6-7 as well causing moderate to severe central and b/l foraminal stenosis. There is spondylosis at these levels as well. No fracture. No lesions. C0-1 and C1-2 stable. INCLUDEPICTURE P:\\\\ppart\\\\Files\\\\[id number]\\\\GNJZ476\\\\XSSX099\\\\PIXY996\\\\BHBQ020\\\\SCRK066\\\\WZQY648\\ \\SURI368\\\\TBHE726\\\\MOFY689\\\\ABXS861\\\\CGQF607\\\\BRSY421\\\\MDOL815\\\\YNSA164\\\\LEVP00 1\\\\FXNV489\\\\MYUC747\\\\AOCH942\\\\HASU912\\\\[id number].PNG \\d On physical exam, Ms. Chopra demonstrates: An intense, sharp, throbbing pain throughout the neck that radiates down into the bilateral upper extremities with a sharp, shooting quality. She states her upper extremity pain is associated with numbness and tingling. She notes progressive weakness throughout the bilateral upper extremities. She notes worsening hand dexterity bilaterally. The patient states her symptoms are exacerbated by all activity, which makes it very difficult for her to complete any of her activities of daily living. She states that ambulating her head to the left or right causes her most significant pain. She notes history of neck pain that shoots behind and around the right ear. The patient reports experiencing severe sleep disturbances related to her ongoing pain and associated symptoms. She states her symptoms have become intolerable. I have explained to the patient that as their condition progresses it will cause further neurological deficits and eventual paralysis. Based on the patients imaging, physical exam, and the rapid progression and disabling nature of their symptoms, at this time I recommend surgery in the form of a: C5-7 ACDF. I discussed the risk and benefits of this procedure at length with Ms. Chopra. T he patient agreed to considered pursuing the procedure above mentioned. Prior to surgery, she should follow up with her PCP (Cardio, ID, IM etc) for clearance. Questions were invited and answered, and the patient wishes to proceed as outlined below. Currently, I am recommendin.C5-7 Anterior cervical discecomty and fusion 2.Follow up with PCP for surgical clearance 3.Review of surgical risks and benefits as well as an educational packet on the proposed surgical procedure. Risks: All surgical procedures come with inherent risks, including those related to positioning, anesthesia, intraoperative findings, and postoperative complications. It is important to understand that surgery does not come with any guarantee of a successful outcome as complications and adverse events are always possible. The patient was given a handout in office today discussing the surgical procedure and risks associated with the intervention, both of which were discussed with the patient. These risks include but are not limited to the following: * Experiencing same, different or even worse symptoms in back, neck, arms, or legs compared to before surgery. Requiring further surgery or other forms of treatment presently or at some time in the future at same or other levels of the intended spine surgery. On an extreme but fortunately relatively rare basis severe complication such as blindness, stroke, heart attack, temporary and/or permanent nerve injury, paralysis, coma, or may occur, sometimes without known explanation. Surgical complications may include but are not limited to risk of infection, fluid accumulation in the surgical dissection site, including a seroma or hematoma, that requires additional surgery, wound drainage, bleeding, new numbness or weakness, vision changes/loss, spinal fluid leakage, non-healing and/or infected incision, headaches, difficulty or inability to swallow, hoarseness, hemopneumothorax, pneumothorax, impotence, retrograde ejaculation, vaginal dryness; injury to nerves, spinal cord, blood vessels, lymphatics or other vital organs (i.e., bowel injury, injury to the great vessels); heterotopic bone formation; complications related to the hardware such as screws, rods, cages including misplaced hardware, device failure, instrumentation at the wrong spine level, hardware fracture/breakage, or hardware loosening; vertebral failure of the spinal column above or below the newly placed hardware; retained surgical instrumentations or devices and the need for further surgery. * Medical risks of the planned spine surgery include but are not limited to generalized Infections to the whole body or local areas outside of the surgical site (sepsis), heart attack, bleeding, anaphylaxis, meningitis, seizure, epilepsy, hearing loss, burn luu, laceration of the head or other areas of the body, bruising, hypersensitivity of the skin, bladder over distension; allergic reaction; shoulder injury related to positioning; fat, blood and air clots to other areas of the body like heart, lungs, brain; failure of internal organs such as lungs, kidneys, liver and excessive bleeding. If blood transfusions are necessary, note that transfusions may cause intolerance reactions such as anaphylaxis or other complex reactions. Despite best efforts, the results of spine surgery might not heal in terms of bone, soft tissues such as skin, fascia, ligaments, and joints. Additionally, in order to achieve best possible results, spine surgery may be carried out bey ond the initially planned levels and involve decompression, fusion including insertion of hardware at levels other than the original intended area of surgical interest change some portions of the procedure in order to ensure the best possible outcomes. With spine surgery and spinal fusion, there are different off label uses of instrumentation (devices, implants and hardware) as well as biological substances (bone morphogenic proteins, demineralized bone matrix) as well as using extra bone from allograft sources (i.e. cadaver bone) or autograft (iliac crest bone, ribs, or the spine itself). The patient has been given information about these practices and their inherent risks and benefits. [facility] is an educational center that serves as a training facility for neurosurgical and orthopedic [employer] and Nursing students. Physician assistants are medically trained surgical providers who function in the outpatient, inpatient, and operating room setting under the direct supervision of the attending surgeon. [facility] has multiple operating rooms with single and overlapping rooms running daily. They currently function under the required guidelines as produced by the [facility] with regards to the overlapping rooms and will continue to comply with changes to this policy as they occur. The requirements include and are complied with as follows: (1) the critical portions of the overlapping rooms will not occur at the same time, (2) the attending physician will be physically present during the critical portions of the procedure and immediately available during the entire case, and (3) a back-up attending is designated should the primary attending not be immediately available. The patient has had a chance to review all the listed information, has been given print outs detailing this information, and has had all his/her questions answered to their satisfaction. It was my pleasure to have seen and examined Ms. Chopra. In our visit today we have had a chance to go over my understanding of our patient's current condition, the natural course history without intervention and various interventional options. Questions were invited and answered, and the patient wishes to proceed as outlined above. I have seen and examined the patient for 25 minutes and we have spent more than 50% of the time in repeat and detailed counseling about the patient's condition, its natural course history with out and as much as can be predicted with surgery and re-review of various surgical treatment options. In conclusion, Ms. Chopra requested we proceed with the above suggested surgery and are willing to accept risks and limitations of the suggested surgery as nature of the disease process and our best attempts at treatment for the condition. Thank you again for allowing us to be part of your patient's care. Please don't hesitate to contact me if you have any further questions. Follow-up: Post procedure Patient Education: (Informational booklet, instructions, etc) given at today's appointment: Yes .ED:Patient Education: Y Medications Reviewed: YES In our visit today Ms. Chopra and I have had a chance to go over my understanding of the patient's current condition, the natural course history without intervention and various interventional options. Questions were invited and answered, and the patient wishes to proceed as outlined above. I will be sure to keep you updated afterMs. Chopra returns here for further follow-up. Thank you again for your referral. Please do not hesitate to contact me if you have any further questions. Signed and authenticated by: Bernardo [facility] [address] [place], [address] [address] This message is confidential, intended only for the named recipient(s) and may contain information that is privileged or exempt from disclosure under applicable law. If you are not the intended recipient(s), you are notified that the dissemination, distribution or copying of this information is strictly prohibited. If you received this message in error, please notify the sender then delete this message. Patient verbalizes understanding of the information discussed. The above note was initiated by Nickie Maher, physician recording campus administrative assistant for Dr. Bernardo Jade. This note has been reviewed by Dr. Jade, who has made his personal changes and impressions for this document. CC: Refugio Chase D.O. Rx: gabapentin 300 mg capsule, 30, Ref: 0, take 1 capsule (300 mg) by oral route 3 times per day # SIGNED BY Bernardo Jade (GOO)06/05/2023 04:39PM Past Medical History Past Medical History: Musculoskeletal Disorder, Pneumonia Additional Past Medical History / Comment(s): constipation w/narcotic pain meds, white coat syndrome-very nervous about surg., numbness down right arm to fingertips History of Any Multi-Drug Resistant Organisms: None Reported Past Surgical History: Back Surgery, Cholecystectomy, Hysterectomy, Orthopedic Surgery Additional Past Surgical History / Comment(s): left rotator cuff repair, right CTS Past Anesthesia/Blood Transfusion Reactions: Family History of Problems w/ Anesthesia, Motion Sickness, Postoperative Nausea & Vomiting (PONV) Additional Past Anesthesia/Blood Transfusion Reaction / Comment(s): brother and sister both have PONV, pt has severe PONV-last surg. had patch behind ear & pre- op meds & worked well for her Smoking Status: Never smoker - Past Family History Mother Family Medical History: Cancer Additional Family Medical History / Comment(s): colon,lung. mother's mom colon CA Father Family Medical History: Cancer Additional Family Medical History / Comment(s): prostate Brother(s) Family Medical History: Cancer Additional Family Medical History / Comment(s): prostate Medications and Allergies Home Medications Medication Instructions Recorded Confirmed Type Acetaminophen Tab [Tylenol] 650 mg PO Q4H PRN 06/10/23 06/11/23 History Gabapentin [Neurontin] 300 mg PO HS 06/10/23 06/11/23 History estradioL [estradioL (Once Weekly) 1 patch TRANSDERM TUFR 06/10/23 06/11/23 History 0.025 mg Patch] Allergies Allergy/AdvReac Type Severity Reaction Status Date / Time azithromycin AdvReac yeast Verified 06/11/23 06:08 infection meclizine [From [facility]] AdvReac Chest Pain Verified 06/11/23 06:08 Physical Examination Osteopathic Statement: *. No significant issues noted on an osteopathic structural exam other than those noted in the History and Physical/Consult.
[2023-06-11] MEDS ORDERED: NEOSTIGMINE 1 MG/ML 10 ML VIAL ONE (07:30)
[2023-06-11] MEDS ORDERED: fentaNYL (PF) 50 MCG/ML 2 ML AMP ONE (07:30)
[2023-06-11] MEDS ORDERED: GLYCOPYRROLATE 0.2 MG/ML 2 ML VIAL ONE (07:30)
[2023-06-11] MEDS ORDERED: TRANEXAMIC 1,000 MG/100ML-NACL PREMIX BAG ONE (07:30)
[2023-06-11] MEDS ORDERED: HYDROmorphone (PF) 1 MG/ML ONE (07:30)
[2023-06-11] MEDS ORDERED: ePHEDrine 50 MG/ML 1 ML VIAL ONE (07:30)
[2023-06-11] MEDS ORDERED: PHENYLEPHRINE 10 MG/ML VIAL ONE (07:30)
[2023-06-11] MEDS ORDERED: MIDAZOLAM 2 MG/2 ML VIAL ONE (07:30)
[2023-06-11] MEDS ORDERED: ROCURONIUM 10 MG/ML (5 ML VIAL) IV ONE (07:30)
[2023-06-11] MEDS ORDERED: PROPOFOL 10 MG/ML 20 ML VIAL IV ONE (07:30)
[2023-06-11] MEDS ORDERED: KETAMINE HCL IN 0.9 % NACL 50 MG/5 ML SYRINGE ONE (07:30)
[2023-06-11] MEDS ORDERED: SUCCINYLCHOLINE CHLORIDE 200 MG/10 ML VIAL IV ONE (07:30)
[2023-06-11] MEDS ORDERED: DEXAMETHASONE SOD PHOSPHATE 10 MG/ML 1 ML VIAL ONE (07:30)
--- NOTE | 2023-06-11 09:48 | P.OP ---
Date of Procedure: 06/11/23 Preoperative Diagnosis: M48.02 Spinal stenosis, cervical region M50.022 Cervical disc disorder at C5-C6 level with myelopathy M50.023 Cervical disc disorder at C6-C7 level with myelopathy G12.25 Progressive spinal muscle atrophy M62.50 Muscle wasting and atrophy, not elsewhere classified, unspecified site Postoperative Diagnosis: M48.02 Spinal stenosis, cervical region M50.022 Cervical disc disorder at C5-C6 level with myelopathy M50.023 Cervical disc disorder at C6-C7 level with myelopathy G12.25 Progressive spinal muscle atrophy M62.50 Muscle wasting and atrophy, not elsewhere classified, unspecified site Procedure(s) Performed: 68023 Arthrodesis, anterior interbody, including disc space preparation, discectomy, osteophytectomy and decompression of spinal cord and/or nerve roots; cervical below C2; C5-6 46606 Arthrodesis, anterior interbody, including disc space preparation, discectomy, osteophytectomy and decompression of spinal cord and/or nerve roots; cervical below C2, each additional interspace; C6-7 62034 Anterior plate fixation, non-integrated Cervical, 2 to 3 vertebral segments C5-7 94516 x2 Insertion of interbody biomechanical device(s) (eg, synthetic cage, mesh) with integral anterior instrumentation for device anchoring (eg, screws, flanges), when performed, to intervertebral disc space in conjunction with interbody arthrodesis, each interspace; C5-6, C6-7 use of IONM Use of IO microscope Implants: -SEVERIANO CASCADIA 9MM, 8MM CAGES 7 DEG -SEVERIANO OZARK PLATE 40 MM -MAGNATOS, AUTOGRAFT Anesthesia: GETA Surgeon: Bernardo Jade Office Messenger Helper #1: Sergei Gaspar (WasWAS PRESENT AND ASSISTED WITH ALL ASPECTS OF THE CASE FROM POSITION TO CLOSURE. ) Estimated Blood Loss (ml): 25 IV fluids (ml): 1,500 Urine output (ml): 0 Pathology: none sent Condition: stable Disposition: PACU Indications for Procedure: Ms. Chopra is presenting for evaluation of neck and bilateral upper extremity pain, bilateral upper extremity numbness, tingling, and weakness, decreased hand dexterity bilaterally. It was my pleasure to have seen and examined Ms. Chopra. In our visit today we have had a chance to go over subjective complaints, physical examination findings and treatments including the natural course history without intervention and various interventional options. The patients imaging demonstrates: Xray of the Cervical Spine was completed on 05-13-2023 at [facility] These images were reviewed with the patient and show the following: Cervical spondylosis that is severe at C5-7 levels with near complete disc collapse, severe osteophyte formation anterior and posteriorly. No fracture. C0- 1 and C1-2 stable. C4-[address] [facility] 05[facility]23 of CervicalSpine: Images reviewed with pt. Again, severe spondylosis noted C5-7 with large disc osteophyte complex posteriorly causing severe central stenosis and b/l foraminal stenosis at C5-6. There is moderate to severe stenosis at C6-7 due to disc herniation as well. Near complete disc collapse noted at these levels with vacuum like phenomena. MRI scancompleted at [facility] from05/16/23 of CervicalSpine: Images reviewed with pt. C5-6 large HNP with severe central and b/l foraminal stenosis. Myelomalacia at this level as well as starting at the C6-7 level due to compressive pathologies. There is HNP at C6-7 as well causing moderate to severe central and b/l foraminal stenosis. There is spondylosis at these levels as well. No fracture. No lesions. C0-1 and C1-2 stable. INCLUDEPICTURE P:\\ppart\\Files\\[id number]\\[id number]\\[id number]\\[id number]\\[id number]\\VBVU688\\TGFE132\ \RUIU906\\DHUJ688\\FMJM963\\FNLA599\\ VGWU732\\FNPO305\\VKUW778\\FPWF424\\ZTPR503\\XQCN293\\OOOZ172\\RJZQ840\\ZSIC850\ \[id number].PNG \d On physical exam, Ms. Chopra demonstrates: An intense, sharp, throbbing pain throughout the neck that radiates down into the bilateral upper extremities with a sharp, shooting quality. She states her upper extremity pain is associated with numbness and tingling. She notes progressive weakness throughout the bilateral upper extremities. She notes worsening hand dexterity bilaterally. The patient states her symptoms are exacerbated by all activity, which makes it very difficult for her to complete any of her activities of daily living. She states that ambulating her head to the left or right causes her most significant pain. She notes history of neck pain that shoots behind and around the right ear. The patient reports experiencing severe sleep disturbances related to her ongoing pain and associated symptoms. She states her symptoms have become intolerable. I have explained to the patient that as their condition progresses it will cause further neurological deficits and eventual paralysis. Based on the patients imaging, physical exam, and the rapid progression and disabling nature of their symptoms, at this time I recommend surgery in the form of a: C5-7 ACDF. I discussed the risk and benefits of this procedure at length with Ms. Chopra. The patient agreed to considered pursuing the procedure above mentioned. Prior to surgery, she should follow up with her PCP (Cardio, ID, IM etc) for clearanc e. Questions were invited and answered, and the patient wishes to proceed as outlined below. Currently, I am recommendin.C5-7 Anterior cervical discecomty and fusion Description of Procedure: C5-7 ACDF The patient was seen and examined in the preoperative area. All preoperative protocols were followed. Informed consent was obtained, risks and benefits of the procedure were discussed at length. Risks including bleeding infection damage to the surrounding tissue and risk of reoperation were discussed with the patient. Risk of anesthesia up to and including was discussed with the patient. These are outlined in the risk review. They were willing to accept these risks and all the risks of surgery. The patient was given a weight-based dose of antibiotics in the form of 2 g Ancef. The patient was seen and evaluated by the anesthesia team who deemed them fit for surgery. The site was marked, the patient was willing to proceed with the procedure. The patient was transferred to the operative suite by the Department of anesthesia. They were then drifted off to sleep by the department anesthesia and GETA was performed. The patient tolerated this well. Francois catheter was placed by nursing staff, a-traumatically. Once confirmation of lines and ventilation the patient was transferred to a Supine Aristeo table very carefully. All bony prominences including wrists, elbows, axilla, chest, hips, and thighs, and feet were padded very well. Special attention was paid to the genitalia, and these were padded accordingly. SCDs were placed on bilateral lower extremities and were connected. Arms were well padded and placed at their side thumbs up. Once in position, again we confirmed good ventilation capabilities and that lines were running appropriately. The patients Cervical spine was then exposed. 1010s were placed outlining the incision site. Standard alcohol was used to clean the incision site and allowed to dry. C-arm was used to bio-varun the patient and confirm level for incision which was marked with a skin marker. Operative briefing was performed with all teams and everyone in agreement to proceed. The patient was then prepped and draped in a normal sterile fashion. Timeout was then performed, and all parties agreed with the procedure to be performed. Transverse skin incision was then made on the right side of the patient's neck 3 cm and dissection taken down to the platysma which was split transversely. Sub platysma flap was made, and interval identified between SCM and medial structures. Omohyoid was visualized and protected. Blunt dissection taken down to the anterior cervical fascia which was identified. Blunt probe was then placed and lateral image taken which confirmed levels for operation. These levels were then marked with a bovi. Subperiosteal dissection of the longissimus muscles were then done over these levels identifying uncovertebral joints bilaterally. Retractor was then placed deep to these muscles and held in place with a bed arm. Starting at C6-7, [place] pins were placed into C6 and C7 and gentle distraction taken out over the levels. Nomi rongeur used to remove disc material. Operating microscope brought in for visualization. Complete discectomy performed at this level with curette, rongure and pituitary. High speed vanessa used to remove osteophytes anteriorly and posteriorly until PLL was identified. 6-0 up curette then used to identify the canal and resect the PLL. 2-0 and 3-0 Kerrison used then to remove PLL and disc herniation and performed b/l foraminotomies. Once good decompression was accomplished, meticulous hemostasis was performed. Sizers were then placed under lateral fluoroscopy until the desired height and lordosis. Cage was then selected, packed with autograft and allograft and placed under lateral imaging. Once in good position it was tested and stable. Motors run before and after cage placement were stable. The wound was irrigated, and autograft placed lateral to the cage anteriorly for fusion. [place] pin was then removed from C7 and placed into C5. Gentle distraction taken out over C5-6 now. Complete discectomy done at C5-6 as described including decompression, b/l foraminotomies and PLL resection. Burring of endplates was minimal, osteophytes removed as described. Spacers were then sized and placed under lateral imaging. Cage selected, packed with graft and placed under lateral images. Once in position, meticulous hemostasis performed, and motors remained stable before and after cage placement. AP image confirmed good placement of cages. Wound was irrigated. A separate, non-integrated plate was then selected and sized under lateral image. The plate was then placed with screws. Fixed screws drilled into C7 b/l and screws placed. Then into C6 and finally C5 with variable screws. All locking mechanisms were set, and all screws had good purchase. Final AP and lateral images taken confirmed good placement of hardware and good reduction and anglican of height. The wound was then irrigated copiously with NSS. Surgicel placed deep in the wound. A deep drain placed out a separate incision and sewed into place. Layered closure then performed with 3-0 Vicryl in the platysma and subQ tissue. 4-0 Strata fix in the subcuticular tissue. The wound was then cleaned, and dried and skin glue placed. Once glue dried on Opifoam was placed. The patient was then transferred back to their hospital bed a-traumatically. The drain continued to hold suction. They were placed in a soft collar. They were then awakened by the department of anesthesia having tolerated the procedure well without complications.
[2023-06-11] MEDS ORDERED: SENNOSIDES-DOCUSATE SODIUM 1 EACH TAB PO PRN (10:02)
[2023-06-11] MEDS ORDERED: HYDROcodone/APAP 5-325MG 1 EACH TAB PO PRN (10:02)
[2023-06-11] MEDS ORDERED: HYDROmorphone 0.5 MG/0.5 ML SYRINGE IVP PRN (10:02)
[2023-06-11] MEDS ORDERED: MAGNESIUM HYDROXIDE 2,400 MG/30 ML CUP PO PRN (10:02)
[2023-06-11] MEDS ORDERED: HYDROcodone/APAP 7.5-325MG 1 EACH TAB PO PRN (10:04)
[2023-06-11] MEDS: HYDROmorphone 0.5 MG/0.5 ML SYRINGE IVP PRN ×2 (11:00→12:24)
[2023-06-11] MEDS ORDERED: LACTATED RINGERS 1,000 ML IV ONE (11:50)
[2023-06-11] MEDS: ONDANSETRON 4 MG/2 ML VIAL IVP PRN ×2 (12:04→20:05)
[2023-06-11] MEDS ORDERED: DEXAMETHASONE SOD PHOSPHATE 10 MG/ML 1 ML VIAL IV PRN (12:12)
--- NOTE | 2023-06-11 12:12 | P.PN ---
Progress Note - Text Progress Note Date: 06/11/23 POST OP CHECK Pt s/e in PACU. She is very tired and loosly folwing directions. Nurse sates some weakness in LUE. She is able to move her b/l arms and legs but she is moving very slowly due to current medications administered. She states some swallowing pain but nothing out of the ordinary. She is able to phonate well. VSS at this time. We will start her on some decadron and watch closely. Continue with post op care. She will transfer to the floor when she is awake and stable per anesthesia and PACU staff. -Soft cervical collary -Post op non constrasted CT scan of C spine ordered -Will order decadron schedule -Pain control as needed -GI/Dvt PPX -Will follow
[2023-06-11] MEDS ORDERED: DEXAMETHASONE SOD PHOSPHATE 20 MG in DEXTROSE 5% IN WATER 50 ML IV STA ×2 (12:17)
--- NOTE | 2023-06-11 12:55 | XR ---
EXAMINATION TYPE: XR cervical spine limited, FL guidance operating room DATE OF EXAM: 06/11/2023 Comparison: None Clinical History: 62-year-old female C5-C7 Fusion Findings: C5-7 CERVICAL FUSION, FL TIME 0.08 SECS, DAP 5.25 Gycm2. 5 images submitted. Impression: Intraoperative fluoroscopy as above.
[2023-06-11] MEDS: ACETAMINOPHEN TAB 325 MG TAB PO SCH ×3 (14:37→17:52)
[2023-06-11] MEDS ORDERED: bisacodyL 5 MG TABLET.DR PO PRN (16:47)
[2023-06-11] MEDS ORDERED: METOCLOPRAMIDE 5 MG/ML 2 ML VIAL IVP STA (17:44)
[2023-06-11] MEDS: ACETAMINOPHEN IV (For NPO) 1,000 MG in EMPTY BAG 1 BAG IVPB SCH (18:04)
--- NOTE | 2023-06-11 18:14 | CT ---
EXAMINATION TYPE: CT cervical spine wo con CT DLP: 464.4 mGycm, Automated exposure control for dose reduction was used. DATE OF EXAM: 06/11/2023 5:46 PM COMPARISON: 12/29/2022. CLINICAL INDICATION:Female, 62 years old with history of post op C spine; PHH, Post op c-spine. TECHNIQUE: Axial CT images from the skull base to the inferior aspect of T2 we obtained without intra venous contrast. Coronal and sagittal reformatted images were also reviewed. Contrast used: mL of , (if blank None) Oral contrast used: (if blank None) FINDINGS: Postsurgical changes to the cervical spine with fixation hardware at C5, C6 and C7. Hardware appears intact. There is no evidence of fracture. Drainage catheter terminates in the surgical bed superiorly . There is scattered foci of gas compatible with recent surgery. IMPRESSION: Postsurgical changes without evidence for post surgical consultation.
--- NOTE | 2023-06-11 19:06 | P.CONS ---
History of Present Illness - Reason for Consult Consult date: 06/11/23 elevated Blood pressure Requesting physician: Bernardo Jade - Chief Complaint Back Pain - History of Present Illness Patient is a 62-year-old female with a history of opiate induced constipation, white coat hypertension, and anemia who presented for ACDF C5-7. Postoperatively the patient did have some pain with swallowing and was subsequently started on Decadron. She was having significant post-op vomiting. Patient seen and examined at bedside. She continues to have intractable nausea and vomiting. The nurses have already tried Zofran and dexamethasone without relief. She also had post-op nausea and vomiting after her gallbladder surgery. She is also feeling dizzy with movement. She denies any post-op chest pain or shortness of breath. She is concerned about popping her stitches. She has been having some recent post nasal drip and sinus issues but no recent illness. Vital signs reviewed General: nontoxic, no distress, appears at stated age Derm: warm, dry Eyes: EOMI, no lid lag, ENT: Nose and ears atraumatic, no thrush, no pharyngeal erythema Cardiovascular: S1S2 reg, no murmur, positive posterior tibial pulse bilateral, no edema, Lungs: clear to auscultation bilateral, no rhonchi, no rales, no wheeze, no accessory muscle use Abdominal: soft, nontender to palpation, no guarding, no appreciable organomegaly, normal bowel sounds Ext: no gross muscle atrophy, no contractures Neuro: CN II-XII grossly intact, movign all 4 extremities independently Psych: Alert, oriented, appropriate affect Assessment/Plan: 62-year-old female status post ACDF C5-7 Intractable post-op vomiting - no improvement with zofran or decadron - will try reglan 5 mg IVP X 1 - Place patient on tele - NPO except ice chips and popsicles overnight painful swallowing Elevated BP without diagnosis of HTN - Follow BP - Likely white coat related with hx of white coat HTN and Pain odynophagia - decadron 20 mg IVP X 1 given in Pacu Hx of Opiate induced constipation - aggressive bowel regiment with miralax 17 grams daily, senna daily, and prn dulcolax Imaging: None new Data Review: Preoperative labs reviewed including CBC and CMP with baseline creatinine of 0.8 and GFR of greater than 60 with hemoglobin 14.8 Thank you for allowing us to participate in the care of this pleasant patient. Do not hesitate to contact us with questions. Someone can be reached from the [facility] hospitalist group all hours of the day at [phone] or via [employer]. This dictation was prepared using [employer] voice recognition software. Though every attempt is made to correct errors during dictation some may still exist. Past Medical History Past Medical History: Musculoskeletal Disorder, Pneumonia Additional Past Medical History / Comment(s): constipation w/narcotic pain meds, white coat syndrome-very nervous about surg., numbness down right arm to fingertips History of Any Multi-Drug Resistant Organisms: None Reported Past Surgical History: Back Surgery, Cholecystectomy, Hysterectomy, Orthopedic Surgery Additional Past Surgical History / Comment(s): left rotator cuff repair, right CTS Past Anesthesia/Blood Transfusion Reactions: Family History of Problems w/ Anesthesia, Motion Sickness, Postoperative Nausea & Vomiting (PONV) Additional Past Anesthesia/Blood Transfusion Reaction / Comm: brother and sister both have PONV, pt has severe PONV-last surg. had patch behind ear & pre-op meds & worked well for her Smoking Status: Former smoker - Past Family History Mother Family Medical History: Cancer Additional Family Medical History / Comment(s): colon,lung. mother's mom colon CA Father Family Medical History: Cancer Additional Family Medical History / Comment(s): prostate Brother(s) Family Medical History: Cancer Additional Family Medical History / Comment(s): prostate Medications and Allergies Home Medications Medication Instructions Recorded Confirmed Type Acetaminophen Tab [Tylenol] 650 mg PO Q4H PRN 06/10/23 06/11/23 History Gabapentin [Neurontin] 300 mg PO HS 06/10/23 06/11/23 History estradioL [estradioL (Once Weekly) 1 patch TRANSDERM TUFR 06/10/23 06/11/23 History 0.025 mg Patch] Allergies Allergy/AdvReac Type Severity Reaction Status Date / Time azithromycin AdvReac yeast Verified 06/11/23 06:08 infection meclizine [From [facility]] AdvReac Chest Pain Verified 06/11/23 06:08 Physical Exam Osteopathic Statement: *. No significant issues noted on an osteopathic structural exam other than those noted in the History and Physical/Consult. Vitals: Vital Signs Temp Pulse Resp BP BP Pulse Ox 06/11/23 13:42 105 H 17 168/94 95 06/11/23 13:12 111 H 18 176/77 95 06/11/23 12:30 101 H 12 173/75 95 06/11/23 12:15 9 L 10 L 155/70 94 L 06/11/23 12:00 99 1 L 142/68 95 06/11/23 11:45 92 15 176/80 96 06/11/23 11:30 103 H 16 180/78 98 06/11/23 11:15 102 H 16 178/74 98 06/11/23 10:59 95 11 L 188/91 97 06/11/23 10:44 83 15 162/86 98 06/11/23 10:29 63 18 137/64 94 L 06/11/23 10:14 73 18 114/59 100 06/11/23 09:59 97.2 F L 78 18 113/60 98 06/11/23 06:46 97.2 F L 80 16 157/74 98 Intake and Output 06/11/23 06/11/23 06/11/23 06:59 14:59 22:59 Intake Total 200 1850 Output Total 825 Balance 200 1025 Intake: IV 200 1850 Output: Urine 800 Estimated Blood Loss 25 Other: Weight 98.8 kg 98.8 kg
[2023-06-11] MEDS: CYCLOBENZAPRINE 5 MG TAB PO SCH (21:30)
[2023-06-11] MEDS: GABAPENTIN 300 MG CAP PO SCH (21:31)
[2023-06-12] MEDS: ACETAMINOPHEN IV (For NPO) 1,000 MG in EMPTY BAG 1 BAG IVPB SCH ×3 (00:14→14:30)
[2023-06-12] MEDS ORDERED: PROCHLORPERAZINE INJ 10 MG/2 ML VIAL IVP PRN (08:04)
[2023-06-12] MEDS ORDERED: MORPHINE SULFATE 4 MG/ML SYRINGE IVP PRN (08:06)
[2023-06-12] MEDS ORDERED: PROCHLORPERAZINE INJ 10 MG/2 ML VIAL IVP STA (08:07)
--- NOTE | 2023-06-12 08:46 | P.PN ---
Subjective Progress Note Date: 06/12/23 Principal diagnosis: 1. C5-7 spondylosis with stenosis, severe 2. Bilateral upper extremity radiculopathy 3. Bilateral upper extremity weakness 4. Cervical myelopathy Patient seen and examined this morning. Patient is resting comfortably in bed. She does report that she has had nausea and vomiting throughout the night. Medications have been adjusted. Surgical dressing to the anterior cervical spine is clean dry and intact with JOSÉ LUIS drain present. Will leave drain at this time and reassess later today. Patient denies any numbness or tingling to the bilateral upper extremities. She does report improvement of her symptoms since the procedure. Encouraged patient to continue with ice chips and crackers. Patient denies any fever, chills, shortness of breath. No acute concerns at this time. Objective - Vital Signs Vital signs: Vital Signs Temp 99 F 06/12/23 07:41 Pulse 91 06/12/23 07:41 Resp 19 06/12/23 07:41 BP 138/70 06/12/23 07:41 Pulse Ox 92 L 06/12/23 07:41 FiO2 Intake & Output 06/11/23 06/12/23 06/12/23 18:59 06:59 18:59 Intake Total 1850 Output Total 1025 20 Balance 825 -20 Weight 98.8 kg Intake: IV 1850 Output: Drainage 20 Anterior Neck 20 Urine 800 Emesis 200 Estimated Blood Loss 25 Other: # Voids 2 - Exam Physical Examination General: The patient is awake and alert, in no acute distress Skin: Skin is warm and dry with no obvious rashes or lesions. Surgical incision to the anterior cervical spine, dressing is clean dry and intact with JOSÉ LUIS drain present. Eye: Pupils are equal, round and reactive to light, extra-ocular movements are intact; there is normal conjunctiva bilaterally. Neck: The neck is supple, there is moderate tenderness and limited range of motion secondary to surgical procedure and soft cervical collar. Cardiovascular: There is a regular rate and rhythm. No murmur, rub or gallop is appreciated. Respiratory: Lungs are clear to auscultation, respirations are non-labored, breath sounds are equal. Gastrointestinal: Soft, non-distended, non-tender abdomen. Back: There is no tenderness to palpation in the midline, paralumbar, parathoracic or buttocks region. There is no obvious deformity . Musculoskeletal: ROM limited secondary to pain and stiffness from surgical procedure. Muscle strength in all major muscle groups of bilateral upper extremities 4/5, bilateral lower extremities 5/5. Neurological: CN 2-12 intact. There are no obvious motor or sensory deficits. Movement and coordination equal and intact. Sensory exam to light touch intact C5-T1 and intact from L2-S1. Reflexes 2/4 in bilateral upper and lower extremities. Negative Hoffmans, babinski, and clonus signs. Psychiatric: Cooperative, appropriate mood & affect, normal judgment. Assessment and Plan Assessment: Post-Op day 1: C5-C7 ACDF 1. C5-7 spondylosis with stenosis, severe 2. Bilateral upper extremity radiculopathy 3. Bilateral upper extremity weakness 4. Cervical myelopathy Plan: -Appreciate bridal sales consultant and team management. -Activity: Ambulate QID, OOB all meals, up and about, limit lifting bending twisting to less than 5 lbs. Use walker or cane if needed for stability. -Daily PT/OT, increase ambulation strength and balance. -Soft cervical collar at all times when up and about, may remove for showers -Pain control: Adequate at this time -Meds: reviewed and adjusted. -GI ppx: senna, Miralax -DVT PPX: OK to restart Heparin tonight -Hygiene: Shower today. Maintain dressing clean and dry. -Drains: Maintain for now. Continue to monitor and record output q shift. -Encourage IS 10x/hr -Dispo: Anticipate discharge home tomorrow with homecare *I reviewed and discussed this case with my attending Dr. Jade, whom has reviewed this chart and films and is in agreement with assessment and plan of care as outlined above. I have personally seen and examined the patient, performed the documentation and the assessment and plan as written. Number of minutes spent on the visit: 20m.
[2023-06-12] MEDS: SENNOSIDES-DOCUSATE SODIUM 1 EACH TAB PO SCH (10:36)
[2023-06-12] MEDS: CYCLOBENZAPRINE 5 MG TAB PO SCH ×2 (10:36→20:05)
[2023-06-12] MEDS: polyethylene glycoL 3350 17 GM POWD.PACK PO SCH (10:36)
[2023-06-12] MEDS: GABAPENTIN 300 MG CAP PO SCH ×2 (10:36→20:05)
--- NOTE | 2023-06-12 11:36 | P.PN ---
Subjective Progress Note Date: 06/12/23 Patient is a 62-year-old female with a history of opiate induced constipation, white coat hypertension, and anemia who presented for ACDF C5-7. Postoperatively the patient did have some pain with swallowing and was subsequently started on Decadron. She had significant post-op vomiting. Patient seen and examined at bedside. She continues to have some nausea postoperatively. She did vomit once overnight last night. She is feeling slightly dizzy on standing. She is no longer having any difficulty swallowing. She does have some pain with swallowing but no sticking or choking sensations Vital signs reviewed General: Nontoxic, no distress, appears at stated age, cervical collar in place Cardiovascular: S1S2 reg, no murmur, positive posterior tibial pulse bilateral, Lungs: CTA bilateral, no rhonchi, no rales, no accessory muscle use Abdominal: Soft, nontender to palpation, no guarding, no appreciable organomegaly Ext: No gross muscle atrophy, no edema b/l lower extremities, no contractures Neuro: CN II-XI grossly intact, no focal neuro deficits Psych: Alert, oriented, appropriate affect Assessment/Plan: 62-year-old female status post ACDF C5-7 Intractable post-op vomiting Intractable postop pain -Continue with IV acetaminophen 1000 mg every 6 hours currently on dose 3 of 4 -Oakley 5-7.5 every 4-6 hours as needed for pain, Flexeril 5 mg twice daily, Neurontin 300 mg twice daily -Advance to regular diet -Compazine IV for nausea has been added by orthopedic surgery. Elevated BP without diagnosis of HTN, improving - Follow BP - Likely white coat related with hx of white coat HTN and Pain Hx of Opiate induced constipation - aggressive bowel regiment with miralax 17 grams daily, senna daily, and prn dulcolax odynophagia, resolved Imaging: CT cervical spine: Postoperative changes Data Review: Order and will review CBC and basic metabolic profile for today Thank you for allowing us to participate in the care of this pleasant patient. Do not hesitate to contact us with questions. Someone can be reached from the [facility] hospitalist group all hours of the day at [phone] or via [employer]. Objective - Vital Signs Vital signs: Vital Signs Temp 99 F 06/12/23 07:41 Pulse 91 06/12/23 07:41 Resp 19 06/12/23 07:41 BP 138/70 06/12/23 07:41 Pulse Ox 94 L 06/12/23 09:58 FiO2 Intake & Output 06/11/23 06/12/23 06/12/23 18:59 06:59 18:59 Intake Total 1850 Output Total 1025 20 Balance 825 -20 Weight 98.8 kg Intake: IV 1850 Output: Drainage 20 Anterior Neck 20 Urine 800 Emesis 200 Estimated Blood Loss 25 Other: # Voids 2 2
[2023-06-12 12:14] LABS: HCT 39.9 % (34.0-46.0); HGB 13.5 gm/dL (11.4-16.0); MCH 31.2 pg (25.0-35.0); MCHC 33.8 g/dL (31.0-37.0); MCV 92.2 fL (80.0-100.0); Mean Platelet Volume 8.5; Platelet Count 253 k/uL (150-450); RBC 4.33 m/uL (3.80-5.40); RDW 12.5 % (11.5-15.5); WBC 15.8 k/uL (3.8-10.6)
[2023-06-12 12:38] LABS: African American GFR (CKD) >90 (>60 ml/min/1.73 sqM); Anion Gap 9 mmol/L; Blood Urea Nitrogen 14 mg/dL (7-17); Carbon Dioxide 24 mmol/L (22-30); Chloride 104 mmol/L (98-107); Glucose 120 mg/dL (74-99); Non-African American GFR(CKD) 83 (>60 ml/min/1.73 sqM); Potassium 4.1 mmol/L (3.5-5.1); Sodium 137 mmol/L (137-145)
[2023-06-13 04:12] VITALS: RESP 17
[2023-06-13 08:03] VITALS: BP 117/75; PULSE 87; TEMP 98.7
--- NOTE | 2023-06-13 08:55 | P.PN ---
Subjective Progress Note Date: 06/13/23 Principal diagnosis: 1. C5-7 spondylosis with stenosis, severe 2. Bilateral upper extremity radiculopathy 3. Bilateral upper extremity weakness 4. Cervical myelopathy Patient seen and examined this morning. Patient is doing much better today, she is able to try up in room this morning with a walker. Patient denies any nausea or vomiting. She is tolerating a soft food diet at this time. Patient reports that her pain is managed. Surgical incision to the anterior cervical spine, edges are well approximated with glue intact. JOSÉ LUIS drain has been removed and new dressing applied. Soft cervical collar is in place. Patient is looking forward to being discharged this morning. Discharge instructions have been discussed. No acute concerns at this time. Objective - Vital Signs Vital signs: Vital Signs Temp 98.7 F 06/13/23 06:57 Pulse 87 06/13/23 06:57 Resp 17 06/13/23 06:57 BP 117/75 06/13/23 06:57 Pulse Ox 91 L 06/13/23 06:57 FiO2 Intake & Output 06/12/23 06/13/23 06/13/23 18:59 06:59 18:59 Intake Total 800 Balance 800 Intake: Oral 800 Other: # Voids 3 2 - Exam Physical Examination General: The patient is awake and alert, in no acute distress Skin: Skin is warm and dry with no obvious rashes or lesions. Surgical incision to the anterior cervical spine, edges are well approximately with glue intact. JOSÉ LUIS drain has been removed. New dressing has been applied. Eye: Pupils are equal, round and reactive to light, extra-ocular movements are intact; there is normal conjunctiva bilaterally. Neck: The neck is supple, there is moderate tenderness and limited range of motion secondary to surgical procedure and soft cervical collar. Cardiovascular: There is a regular rate and rhythm. No murmur, rub or gallop is appreciated. Respiratory: Lungs are clear to auscultation, respirations are non-labored, breath sounds are equal. Gastrointestinal: Soft, non-distended, non-tender abdomen. Back: There is no tenderness to palpation in the midline, paralumbar, parathoracic or buttocks region. There is no obvious deformity . Musculoskeletal: ROM limited secondary to pain and stiffness from surgical procedure. Muscle strength in all major muscle groups of bilateral upper extremities 4/5, bilateral lower extremities 5/5. Neurological: CN 2-12 intact. There are no obvious motor or sensory deficits. Movement and coordination equal and intact. Sensory exam to light touch intact C5-T1 and intact from L2-S1. Reflexes 2/4 in bilateral upper and lower extremities. Negative Hoffmans, babinski, and clonus signs. Psychiatric: Cooperative, appropriate mood & affect, normal judgment. - Labs CBC & Chem 7: 06/12/23 12:05 06/12/23 12:05 Labs: Abnormal Lab Results - Last 24 Hours (Table) 06/12/23 06/12/23 Range/Units 12:05 12:05 WBC 15.8 H (3.8-10.6) k/uL Glucose 120 H (74-99) mg/dL Assessment and Plan Assessment: Post-Op day 2: C5-C7 ACDF 1. C5-7 spondylosis with stenosis, severe 2. Bilateral upper extremity radiculopathy 3. Bilateral upper extremity weakness 4. Cervical myelopathy Plan: -Appreciate bmw sales consultant and team management. -Activity: Ambulate QID, OOB all meals, up and about, limit lifting bending twisting to less than 5 lbs. Use walker or cane if needed for stability. -Daily PT/OT, increase ambulation strength and balance. -Soft cervical collar at all times when up and about, may remove for showers -Pain control: Adequate at this time -Meds: reviewed and adjusted. -GI ppx: senna, Miralax -DVT PPX: heparin -Hygiene: Shower today. Maintain dressing clean and dry. -Encourage IS 10x/hr -Dispo: Discharged home later this morning *I reviewed and discussed this case with my attending Dr. Jade, whom has reviewed this chart and films and is in agreement with assessment and plan of care as outlined above. I have personally seen and examined the patient, performed the documentation and the assessment and plan as written. Number of minutes spent on the visit: 20m.
--- NOTE | 2023-06-13 09:01 | P.DS ---
Providers Date of admission: 06/11/23 05:37 Expected date of discharge: 06/13/23 Attending physician: Bernardo Jade DO Consults: 06/11/23 10:02 Consult Physician Routine Consulting Provider: Monika Moses Consult Reason/Comments: medical management Do you want consulting provider notified?: Yes Primary care physician: [facility] Course: Hospital Course: The patient was evaluated preoperatively and found to have the diagnosis of cervical spondylosis with cervical myelopathy. They underwent appropriate preoperative care and were willing to undergo the intended procedure. They underwent a successful C5-C7 ACDF, were recovered appropriately and sent to the floor. While on the floor they worked with physical therapy, occupational therapy and nursing to enhance their recovery experience. Their pain was well controlled through their stay and they were started on appropriate medications, DVT ppx modalities, activity and dietary needs. Daily labs were monitored closely, and transfusions were only used when necessary. Medicine as well as other consulting services have made their input and have helped with our team approach and multidisciplinary care. PT milestones have been met and passed and they have made the recommendation of home for this patient and treating providers agree with this care path. The patient will be discharged home with appropriate medications, instructions and follow-up information and in stable condition. Patient Condition at Discharge: Good Plan - Discharge Summary Discharge Rx Participant: Yes New Discharge Prescriptions: New Cyclobenzaprine [Flexeril] 5 mg PO BID PRN #40 tablet PRN Reason: Muscle Spasm HYDROcodone/APAP 5-325MG [[place] 5-325] 1 tab PO Q6HR PRN #28 tab PRN Reason: Pain Sennosides/Docusate Sodium [Senna Plus 8.6-50 mg Softgel] 1 each PO DAILY PRN #20 capsule PRN Reason: Constipation cefaDROXiL [Duricef] 500 mg PO Q12HR #10 cap Gabapentin 300 mg PO TID #90 cap Ondansetron Odt [Zofran Odt] 4 mg PO Q8HR PRN #20 tab PRN Reason: Nausea No Action Acetaminophen Tab [Tylenol] 650 mg PO Q4H PRN PRN Reason: Pain estradioL [estradioL (Once Weekly) 0.025 mg Patch] 1 patch TRANSDERM TUFR Gabapentin [Neurontin] 300 mg PO HS Discharge Medication List Acetaminophen Tab [Tylenol] 650 mg PO Q4H PRN 06/10/23 [History] Gabapentin [Neurontin] 300 mg PO HS 06/10/23 [History] estradioL [estradioL (Once Weekly) 0.025 mg Patch] 1 patch TRANSDERM TUFR 06/10/23 [History] Cyclobenzaprine [Flexeril] 5 mg PO BID PRN #40 tablet 06/13/23 [Rx] Gabapentin 300 mg PO TID #90 cap 06/13/23 [Rx] HYDROcodone/APAP 5-325MG [[place] 5-325] 1 tab PO Q6HR PRN #28 tab 06/13/23 [Rx] Ondansetron Odt [Zofran Odt] 4 mg PO Q8HR PRN #20 tab 06/13/23 [Rx] Sennosides/Docusate Sodium [Senna Plus 8.6-50 mg Softgel] 1 each PO DAILY PRN #20 capsule 06/13/23 [Rx] cefaDROXiL [Duricef] 500 mg PO Q12HR #10 cap 06/13/23 [Rx] Follow up Appointment(s)/Referral(s): Bernardo Jade DO [Doctor of Osteopathic Medicine] - 06/26/23 1:45 pm Activity/Diet/Wound Care/Special Instructions: Spine Discharge and Recovery Instructions Date of Surgery: 06/11/2023 Diagnosis: Cervical spondylosis with cervical myelopathy Procedure: C5-C7 ACDF Medications: See medication list All medication refills should be obtained through your primary care doctor or your clinic spine surgeon. Please discuss prescription refills at your follow up appointment. Do not call the hospital for medication refills. Activity: Encourage ambulation with assist of walker, Up and about 6-8x daily PT/OT daily work on balance, strength and mobility Up in chair with all meals Shower daily Brace: Use brace when up and about, do not wear in bed or shower Dressing: Leave your dressing in place for a total of 3 days post operatively. Then you may remove your dressing and leave open to air. Keep the area clean and if not able to keep area clean, then cover with sterile gauze and tape. Showering: You may shower 3 days after your procedure allowing soap and water to run over incision. Do not scrub. Do not soak. Blot dry. Follow up: Please confirm a follow up appointment with your surgeon 2 weeks post operatively. Please make an appointment to follow up with your PCP in 1-2 weeks after surgery for evaluation 3 phase, 3-week plan POST OP WEEKS 1-3 1. Lifting/carrying/pushing/pulling limited to less than 5 pounds. 2. Do not sit for longer than 15 minutes at one time. Get up and walk around. Prolonged sitting is NOT advised. If you lay down, see if you can tolerate laying down on you front (belly side) 3. Walk for periods of 15 minutes = 1 mile but no longer; do it multiple times times each day. 4. Ice your low back after activity. POST OP WEEKS 3-6 1. Lifting limited to less than 20 pounds. 2. Do not sit for longer than 30 minutes at a time. Frequently change positions. Use a sit-to stand workstation or take frequent breaks from sitting if you have returned to work. 3. Walk for 30 minutes each day. If possible, do these three or more times a day POST OP WEEKS 6+ At your 6-week appointment we will give you a physical therapy referral to focus on a core stabilization and strengthening program. You should also work on leg & buttock strengthening, hamstring & quadriceps stretching, and continue a low impact aerobic activity program such as swimming, walking, or riding a stationary bicycle. During the initial 6 weeks after your surgery, you are at the highest risk of re-injuring your spine. You should generally avoid BLTs (bending, lifting and twisting combination motions) and follow the above guidelines to reduce the chance of reinjury. You can anticipate post op appointments in our office at approximately 3 weeks and 6 weeks after your surgery. INCISION CARE: If your incision is not draining you do NOT need to cover it with a dressing. Keep your incision clean, dry and intact. In most cases, we apply skin glue, con or sutures to the incision at the time of surgery. This will be like a crust or have the appearance of a scab and will fall off in time on its own. The stitches or con need to be removed at 3 weeks post op appointment. You may begin to shower 3 days after surgery (this allows the glue to flores well). However, please avoid scrubbing the incision site or peeling off any of the skin glue. This will ensure optimal healing of your incision. Also, during this time avoid soaking the incision area in water - this includes swimming pools, hot tubs or baths. No ointments, lotions or oils on the incision until your surgeon allows. Leave con, sutures or glue in place. Neurological dysfunction that comes on suddenly can also be a sign of a stroke. Below some common symptoms of a stroke are listed: B - balance difficulty such as sudden onset walking or leaning to one side - NEW E - eye problem such as sudden double vision or trouble seeing on one side - NEW F - Facial weakness or numbness on one side - NEW A - Arm or leg weakness or numbness on one side - NEW S - Slurred speech or difficulty with word finding - NEW T - Time is BRAIN! Call 911 as soon as you recognize these symptoms Diet: Consume a regular diet rich in vegetables and lean protein such as chicken or fish. You should consume in a ratio of approximately 20% fats|40% carbohydrates|40%protein. Vegetables, sweet potatoes, brown rice or quinoa are examples of good carbohydrates. Chips, white bread, cookies and sweets/sugar are examples of bad carbohydrates. Limit your bad carbs, go wild with good carbs. "Life's Simple 7" Guidelines as per [place] [employer] These will help you reclaim your life after surgery and cutting machine tender helper in your recovery, keeping in mind your restrictions. (1) Get Active. Physical activity can help people lose weight, control high blood pressure and cholesterol, feel emotionally better, and sleep better. (2) Control Cholesterol. Avoid a diet high in saturated fat, trans fat, & cholesterol. Limit whole milk & cream, ice cream, butter, egg yolks, processed meats (like sausage and hot dogs), and fatty meats. Choose healthy foods that are low in saturated fat, trans fat and cholesterol which include: Fruits and vegetables, fiber rich grain products (like whole grain pasta and brown rice), lean meat such as chicken, fish, nuts, seeds, and legumes. (3) Eat Better. Eat small portions. Shop at the grocery with a list and do not stray from it. Tips for a healthy diet include: Limit sodium intake to less than 1500mg daily, avoid prepackaged, processed, and fast foods, choose a diet rich in fruits, vegetables, and whole grain, high fiber foods, and limit saturated & cholesterol in your diet. (4) Manage Blood Pressure. If you have high blood pressure, you should have a cuff at home so that you can check your blood pressure regularly. Be sure you have a good cuff. An arm one is generally better than a wrist one. Bring the cuff to a doctor's appointment to validate that the measurements that your cuff are taking are accurate. Take your blood pressure twice daily when you are sitting down and relaxing. Record the numbers in a log and bring this log with you to your doctors' appointments. (5) Lose Weight if your BMI is above 25. A healthy BMI is between 19-25. To calculate Your BMI, you may use a Standard BMI Calculator on the NIH BMI website: <www.nhlbi.nih.gov/guidelines/obesity/BMI/bmicalc.htm>. Weigh oneself daily. If you are overweight, set a goal to lose weight. A pound a week loss if needed is a good target. (6) Reduce Blood Sugar. Limit foods and liquids with "added sugars." (Added sugars include sucrose, fructose, glucose, maltose, dextrose, high fructose corn syrup, corn syrup, concentrated fruit juice and honey). (7) Stop Smoking. If you smoke, quitting smoking is one of the best things that you can do for your health. Smoking increases your risk of heart attack, stroke, and peripheral vascular disease, which is a build-up of plaque in your arteries. Please discard all the cigarettes and lighters in your house. Have a plan for what you will do when you have the urge to smoke. Direct and second- hand smoke shortens your life as well as the lives of your family, friends and others around you. For your health and the health of those around you, please consider quitting! Proper Bending Body Mechanics: Maintain a wide stance with one foot slightly in front of the other. Keep your back straight. Bend utilizing the strength in your hips and knees. Do not bend at the waist. Maintain the lifted object at your waist-level close to your body. Avoid lifting weight that causes immediately pain or pain anywhere in the body afterwards. Smoking/Nicotine If there was ever one thing that you could do to increase your overall health, decrease your risk of cardiovascular problems by about 39% the second you make the choice, it is to STOP SMOKING. Your body's most instant gratification is the second you stop smoking. We have all heard the studies, read the articles but it is true, smoking is extremely bad for your overall health, and moreover it is detrimental to your bone health. Nicotine, IN ANY FORM, kills bone cells, prevents your body from healing fractures, and significantly prolongs healing after surgery. In spine surgery specifically, it increases your risk of not healing your bones to create a fusion and increases your risk of having a revision surgery due to this up to 60%. I know it is hard. I know it feels impossible. But there are ways. Take control of your life. We are here to help you through it. And when you are ready, ask us and we can direct you to help if you desire. Use the START Plan to Quit Smoking (please visit the Helpguide.org website listed below for more information): S = Set a quit date. Choose a date within the next 2 weeks, so you have enough time to prepare without losing your motivation to quit. If you mainly smoke at work, quit on the weekend, so you have a few days to adjust to the change. T = Tell family, friends, and co-workers that you plan to quit. Let your friends and family in on your plan to quit smoking and tell them you need their support and encouragement to stop. Look for a quit juan who wants to stop smoking as well. You can help each other get through the rough times. A = Anticipate and plan for the challenges you'll face while quitting. Most people who begin smoking again do so within the first 3 months. You can help yourself make it through by preparing ahead for common challenges, such as nicotine withdrawal and cigarette cravings. R = Remove cigarettes and other tobacco products from your home, car, and work. Throw away all your cigarettes (no emergency pack!), lighters, ashtrays, and matches. Wash your clothes and freshen up anything that smells like smoke. Shampoo your car, clean your drapes and carpet, and steam your furniture. T = Talk to your doctor about getting help to quit. Your doctor can prescribe medication to help with withdrawal and suggest other alternatives. If you can't see a doctor, you can get many products over the counter at your local pharmacy or grocery store, including the nicotine patch, nicotine lozenges, and nicotine gum. Resources for Quitting Smoking: <https://www.[place].gov/documents/[facility]/Quit_Tobacco_Resources_for_patients_313 480_7.pdf> Supplementation: Take recommended dosages of Vitamin D and Calcium to help fortify your bones and help them to heal. See your health maintenance packet for dosages and recommended levels. DVT/VTE prophylaxis: You will be given compression stockings from the hospital. Wear these daily for the first two weeks after surgery. You may take them off at night. You may be prescribed a medication to help thin your blood. Take this as directed. If you are not prescribed this medication, early and frequent ambulation has been shown to be the best prophylaxis to deep vein thrombosis and sequelae related to this event. Discharge Disposition: HOME SELF-CARE
[2023-06-13] MEDS: CYCLOBENZAPRINE 5 MG TAB PO SCH (10:18)
[2023-06-13] MEDS: polyethylene glycoL 3350 17 GM POWD.PACK PO SCH (10:18)
[2023-06-13] MEDS: SENNOSIDES-DOCUSATE SODIUM 1 EACH TAB PO SCH (10:18)
[2023-06-13] MEDS: GABAPENTIN 300 MG CAP PO SCH (10:18)
--- NOTE | 2023-06-13 11:21 | P.PN ---
Subjective Progress Note Date: 06/13/23 (delayed charting seen at 0930) Patient is a 62-year-old female with a history of opiate induced constipation, white coat hypertension, and anemia who presented for ACDF C5-7. Postoperatively the patient did have some pain with swallowing and was subsequently started on Decadron. She had significant post-op vomiting. Patient seen and examined at bedside.. Swallowing is better, pain is well-controlled, nausea and vomiting has resolved. She did have a bowel movement. Vital signs reviewed General: Nontoxic, no distress, appears at stated age, cervical collar in place Cardiovascular: S1S2 reg, no murmur, positive posterior tibial pulse bilateral, Lungs: CTA bilateral, no rhonchi, no rales, no accessory muscle use Abdominal: Soft, nontender to palpation, no guarding, no appreciable organomegal y Ext: No gross muscle atrophy, no edema b/l lower extremities, no contractures Neuro: CN II-XI grossly intact, no focal neuro deficits Psych: Alert, oriented, appropriate affect Assessment/Plan: 62-year-old female status post ACDF C5-7 Intractable post-op vomiting Intractable postop pain - agree with Zofran on discharge for recurrent nausea vomiting Elevated BP without diagnosis of HTN, improving - Follow BP - Likely white coat related with hx of white coat HTN and Pain - Outpatient Follow-up Hx of Opiate induced constipation - at home take senna everyday she take a narcotic and then mirialax every 48 hours if no bowel movement odynophagia, resolved Patient medically optimized for discharge at the discretion of spine ortho. Home med rec addressed. Imaging: None new Data Review: None new Thank you for allowing us to participate in the care of this pleasant patient. Do not hesitate to contact us with questions. Someone can be reached from the [facility] [place] [place] hospitalist group all hours of the day at [phone] or via [employer]. Objective - Vital Signs Vital signs: Vital Signs Temp 98.7 F 06/13/23 06:57 Pulse 87 06/13/23 07:35 Resp 17 06/13/23 07:35 BP 117/75 06/13/23 06:57 Pulse Ox 91 L 06/13/23 06:57 FiO2 Intake & Output 06/12/23 06/13/23 06/13/23 18:59 06:59 18:59 Intake Total 800 Balance 800 Intake: Oral 800 Other: # Voids 3 2 - Labs CBC & Chem 7: 06/12/23 12:05 06/12/23 12:05 Labs: Abnormal Lab Results - Last 24 Hours (Table) 06/12/23 06/12/23 Range/Units 12:05 12:05 WBC 15.8 H (3.8-10.6) k/uL Glucose 120 H (74-99) mg/dL
== END 2023-06-13 11:25 | disposition home or self-care (01) ==
LOC: OR 05:36 → 4SSUR 05:37 → OR 05:37 → 4SSUR 09:42
PROVIDERS: ADMIT Orthopaedic Surgery; ATTEND Orthopaedic Surgery
DX: M47.12 Other spondylosis with myelopathy, cervical region (principal); M47.22 Other spondylosis with radiculopathy, cervical region; M48.02 Spinal stenosis, cervical region; G95.89 Other specified diseases of spinal cord; M50.022 Cervical disc disorder at C5-C6 level with myelopathy; M50.023 Cervical disc disorder at C6-C7 level with myelopathy; G00-G99 Diseases of the nervous system; M25.78 Osteophyte, vertebrae; R53.1 Weakness; R11.2 Nausea with vomiting, unspecified; K59.03 Drug induced constipation; T40.605A Adverse effect of unspecified narcotics, initial encounter; R03.0 Elevated blood-pressure reading, without diagnosis of hypertension; R13.10 Dysphagia, unspecified; Z87.891 Personal history of nicotine dependence; Z79.899 Other long term (current) drug therapy; Z88.1 Allergy status to other antibiotic agents
CPT/HCPCS: 96376 ×3; 96365; 96366; 96367; 96375 ×2; 94760; 97116; 97161; 80048; 85027; 72040; 72125; 22551; 22552; 22853 ×2; 20931; 20936; G0378 ×3; L0120; C1713; J2250; J0330; J0780 ×2; J1100 ×2; J2710; J2765; J0690; J2405; J3010; J1170 ×2; J0131 ×2; J2704; J2371

== ENCOUNTER → 2023-09-30 | Outpatient (CLI) | payer OTHER ==
[2023-09-30 10:39] LABS: Basophils # (A) 0.07 X 10*3/uL (0.00-0.10); Basophils % (A) 1.2 %; Eosinophils % (A) 10.6 %; HGB 14.2 g/dL (12.0-15.0); Lymphocytes # (A) 2.29 X 10*3/uL (0.90-5.00); Lymphocytes % (A) 40.3 %; MCH 30.9 pg (27.0-32.0); MCV 93.7 FL (80.0-97.0); Mean Platelet Volume 11.4 FL (9.5-12.2); Monocytes # (A) 0.38 X 10*3/uL (0.20-1.00); Monocytes % (A) 6.7 %; NRBC Per 100 WBC 0 X 10*3/uL (0.00-0.01); Neutrophils # (A) 2.32 X 10*3/uL (1.80-7.70); Neutrophils % (A) 40.8 %; Platelet Count 250 X 10*3/uL (140-440); RBC 4.59 X 10*6/uL (4.10-5.20); RDW 12.6 % (11.5-14.5); WBC 5.68 X 10*3/uL (4.50-10.00)
[2023-09-30 11:06] LABS: ALT 14 U/L (8-44); AST 17 U/L (13-35); Albumin 4.3 g/dL (3.8-4.9); Albumin/Globulin Ratio 1.72 Ratio (1.60-3.17); Alkaline Phosphatase 109 U/L (41-126); BUN/Creat Ratio 15.75 Ratio (12.00-20.00); Blood Urea Nitrogen 12.6 mg/dL (9.0-27.0); Calcium 9.4 mg/dL (8.7-10.3); Carbon Dioxide 22.4 mmol/L (21.6-31.8); Chloride 105 mmol/L (96-109); Chol/HDL Ratio 3.25 Ratio; Globulin 2.5 g/dL (1.6-3.3); Glucose 99 mg/dL (70-110); LDL Cholesterol,Calculated 94.4 mg/dL (0.0-131.0); Potassium 4.2 mmol/L (3.5-5.5); Sodium 140 mmol/L (135-145); T4, Free (Free Thyroxine) 1.15 ng/dL (0.80-1.80); Total Bilirubin 0.5 mg/dL (0.3-1.2); Total Protein 6.8 g/dL (6.2-8.2)
== END | disposition home or self-care (01) ==
LOC: LABWHC1 06:55
PROVIDERS: ATTEND Internal Medicine Critical Care Medicine
DX: Z00.00 Encounter for general adult medical examination without abnormal findings (principal); D64.9 Anemia, unspecified; E55.9 Vitamin D deficiency, unspecified; B17.9 Acute viral hepatitis, unspecified
CPT/HCPCS: 36415; 80053; 80061; 82306; 83036; 84439; 84443; 85025

== ENCOUNTER → 2023-11-11 | Outpatient (CLI) | payer OTHER ==
--- NOTE | 2023-11-11 22:46 | MR ---
EXAMINATION TYPE: MR knee LT wo con DATE OF EXAM: 11/11/2023 COMPARISON: Outside left knee x-ray October 2023 HISTORY: Left knee medial pain and swelling since September 2023 twisting injury TECHNIQUE: Multiplanar, multisequence images of the knee is performed without IV contrast. FINDINGS: MEDIAL MENISCUS: Triangular and Oblique increased signal posterior horn medial meniscus extends to in ferior articular surface. LATERAL MENISCUS: Anterior and posterior horns are intact without tear. CRUCIATE LIGAMENTS: The anterior and posterior cruciate ligaments are intact and unremarkable. COLLATERAL LIGAMENTS: The medial collateral ligament and lateral collateral ligament complex are inta ct . Mild fluid signal surrounds the medial collateral ligament. EXTENSOR MECHANISM: Visualized quadriceps and patellar tendons are intact. EFFUSION: Moderate-sized suprapatellar joint effusion. POPLITEAL CYST: Small to moderate size popliteal/acharya cyst. TRICOMPARTMENT SPACES: Mild tricompartment Joint space loss and spurring. CARTILAGE: Some chondromalacia patella or thinning of articular cartilage posterior patella. BONE MARROW SIGNAL: Some heterogeneous increased T2 signal involving the posterior medial aspect of t he tibial plateau . No linear diminished T1 signal to suggest radiooccult fracture. OTHER: No additional significant abnormality is appreciated. IMPRESSION: 1. Oblique full thickness tear posterior horn medial meniscus. 2. Abnormal osseous contusion and/or bone marrow edema posterior medial aspect of the tibial plateau. 3. Mild MCL sprain injury. 4. Moderate-sized suprapatellar joint effusion. 5. [id number] sized popliteal cyst.
== END | disposition home or self-care (01) ==
LOC: RADMRIMAIN 19:20
PROVIDERS: ATTEND Orthopaedic Surgery
DX: S83.412A Sprain of medial collateral ligament of left knee, initial encounter (principal); S83.242A Other tear of medial meniscus, current injury, left knee, initial encounter; M25.462 Effusion, left knee; M71.22 Synovial cyst of popliteal space [Baker], left knee

== ENCOUNTER → 2023-12-11 | Outpatient (CLI) | payer OTHER ==
--- NOTE | 2023-12-19 21:19 | MM ---
Reason for Exam: Screening (asymptomatic). Last mammogram was performed 1 year(s) and 1 month(s) ago. Patient History: Menarche at age 15. First Full-Term at age 18. Hysterectomy at age 44. Postmenopausal. Patient has history of breast feeding. Currently using Estrogen, starting at age 62. Sister had breast cancer, age 51. Risk Values: Rae 5 year model risk: 2.8%. NCI Lifetime model risk: 12.9%. Prior Study Comparison: 04/14/2021 Bilateral Screening Mammogram, [facility]. 02/26/2022 Bilateral MG 3D screening mammo w/cad, [facility]. 11/09/2022 Bilateral MG 3D screening mammo w/cad, [facility]. Tissue Density: There are scattered areas of fibroglandular density. Findings: Analyzed By CAD. Unchanged global asymmetry left outer aspect on the CC view. Chronic nodularity on the right. No significant change from prior exams. Overall Assessment: Benign, BI-RAD 2 Management: Screening Mammogram of both breasts in 1 year. . Patient should continue monthly self-breast exams. A clinical breast exam by your physician is recommended on an annual basis. This exam should not preclude additional follow-up of suspicious palpable abnormalities. Note on Rae scores and lifetime risk: 1. A Rae score greater than 3% is considered moderate risk. If this is the case, consider specialist referral to assess eligibility for a risk reducing agent. 2. If overall lifetime risk for the development of breast cancer is 20% or higher, the patient may qualify for future screening with alternating mammogram and breast MRI. Electronically signed and approved by: Shane Akbar M.D. Radiologist
== END | disposition home or self-care (01) ==
LOC: RADMAMWWP 08:11
PROVIDERS: ATTEND Internal Medicine Critical Care Medicine
DX: Z12.31 Encounter for screening mammogram for malignant neoplasm of breast (principal); R92.323 Mammographic fibroglandular density, bilateral breasts; Z78.0 Asymptomatic menopausal state; Z80.3 Family history of malignant neoplasm of breast
CPT/HCPCS: 77063; 77067

== ENCOUNTER → 2023-12-11 | Outpatient (CLI) | payer OTHER ==
[2023-12-11 09:55] LABS: African American GFR (CKD) >90 (>60 ml/min/1.73 sqM); Anion Gap 5 mmol/L; Basophils # (A) 0.1 k/uL (0-0.2); Basophils % (A) 1 %; Blood Urea Nitrogen 14 mg/dL (7-17); Calcium 9.4 mg/dL (8.4-10.2); Carbon Dioxide 25 mmol/L (22-30); Chloride 110 mmol/L (98-107); Eosinophils # (A) 0.8 k/uL (0-0.7); Eosinophils % (A) 11 %; Glucose 75 mg/dL (74-99); HCT 41.3 % (34.0-46.0); Lymphocytes # (A) 2.1 k/uL (1.0-4.8); Lymphocytes % (A) 30 %; MCH 32.4 pg (25.0-35.0); MCHC 33.9 g/dL (31.0-37.0); MCV 95.5 fL (80.0-100.0); Mean Platelet Volume 8.8; Monocytes # (A) 0.4 k/uL (0-1.0); Monocytes % (A) 5 %; Neutrophils # (A) 3.7 k/uL (1.3-7.7); Neutrophils % (A) 51 %; Non-African American GFR(CKD) >90 (>60 ml/min/1.73 sqM); Platelet Count 222 k/uL (150-450); Potassium 4.4 mmol/L (3.5-5.1); RBC 4.33 m/uL (3.80-5.40); RDW 13.1 % (11.5-15.5); Sodium 140 mmol/L (137-145); WBC 7.2 k/uL (3.8-10.6)
== END | disposition home or self-care (01) ==
LOC: LABWHC1 08:27
PROVIDERS: ATTEND Orthopaedic Surgery
DX: Z01.812 Encounter for preprocedural laboratory examination (principal); M23.91 Unspecified internal derangement of right knee
CPT/HCPCS: 36415; 80048; 85025; 93005

== ENCOUNTER → 2023-12-26 | Outpatient (CLI) | payer OTHER ==
--- NOTE | 2023-12-26 13:29 | XR ---
EXAMINATION TYPE: XR cervical spine limited DATE OF EXAM: 12/26/2023 1:21 PM INDICATION: Patient age:Female; 63 years old; Reason for study: M54.2 CERVICALGIA; [facility]. COMPARISON: CT cervical spine 06/11/2023, cervical spine radiograph 06/11/2023 TECHNIQUE: The cervical spine was imaged in AP, lateral, and odontoid projections. FINDINGS: Postsurgical changes from ACDF involving C5-C7 with disc fusion cages. Hardware appears intact with a ppropriate alignment. Straightening of the normal cervical lordosis.. There is again fusion of the C2 -C3 facet joint. Multilevel facet arthropathy demonstrated. Disc space narrowing at C4-C5 with endpla te sclerosis. Pedicles are intact. The odontoid appears intact. Calcification identified within the spine posterior spinal soft tissues. IMPRESSION: 1. No acute fracture. 2. Postsurgical changes from ACDF C5-C7. Hardware appears intact with appropriate alignment. 3. Mild degenerative disc disease at C3-C4.
== END | disposition home or self-care (01) ==
LOC: RADXRMAIN 13:05
PROVIDERS: ATTEND Orthopaedic Surgery
DX: M50.31 Other cervical disc degeneration, high cervical region (principal); Z98.1 Arthrodesis status
CPT/HCPCS: 72040

== ENCOUNTER 2023-12-27 06:01 | Day surgery (SDC) | payer OTHER ==
--- NOTE | 2023-12-26 08:43 | P.HPOR ---
History of Present Illness H&P Date: 12/26/23 Chief Complaint: Left knee pain The patient's a 63-year-old female who presents with left knee pain after previous twisting injury. She notes medial and posterior pain with weightbearing activities. She has intermittent giving way and locking. She tried medications in addition to an injection with temporary partial relief. Review of Systems As per HPI Past Medical History Past Medical History: Musculoskeletal Disorder, Pneumonia Additional Past Medical History / Comment(s): constipation w/narcotic pain meds, white coat syndrome-very nervous about surg., intermittent shooting pain rt elbow to writst post neck surgery. History of Any Multi-Drug Resistant Organisms: None Reported Past Surgical History: Back Surgery, Cholecystectomy, Hysterectomy, Orthopedic Surgery Additional Past Surgical History / Comment(s): left rotator cuff repair, right CTS, Rt CTR. colonoscopy Past Anesthesia/Blood Transfusion Reactions: Family History of Problems w/ Anesthesia, Motion Sickness, Postoperative Nausea & Vomiting (PONV) Additional Past Anesthesia/Blood Transfusion Reaction / Comment(s): brother and sister both have PONV, pt has severe PONV-last surg. had patch behind ear & pre- op meds. Smoking Status: Former smoker - Past Family History Mother Family Medical History: Cancer Additional Family Medical History / Comment(s): colon,lung. mother's mom colon CA Father Family Medical History: Cancer Additional Family Medical History / Comment(s): prostate Brother(s) Family Medical History: Cancer Additional Family Medical History / Comment(s): prostate Sister(s) Family Medical History: Cancer Additional Family Medical History / Comment(s): breast cancer Medications and Allergies Home Medications Medication Instructions Recorded Confirmed Type Acetaminophen Tab [Tylenol] 650 mg PO Q4H PRN 06/10/23 12/25/23 History estradioL [estradioL (Once Weekly) 1 patch TRANSDERM TUFR 06/10/23 12/25/23 History 0.025 mg Patch] Cyclobenzaprine [Flexeril] 5 mg PO BID PRN #40 tablet 06/13/23 12/25/23 Rx Allergies Allergy/AdvReac Type Severity Reaction Status Date / Time azithromycin AdvReac yeast Verified 06/11/23 06:08 infection meclizine [From [facility]] AdvReac Chest Pain Verified 06/11/23 06:08 Physical Examination - Knee left Appearance: effusion Effusion grade: trace Tenderness with palpation: anterior, medial Pain: throughout ROM Gait: limping ROM: extension: -10 degrees ROM: flexion: 100 degrees Crepitus with motion: Yes Strength: extension: 5/5 Strength: flexion: 5/5 Meniscal tests: medial meniscal tests: positive, medial joint line pain: positive Results Patient is a well-developed well-nourished female approximately 5 foot 7, 218 pounds of endomorphic habitus. HEENT exam is nonfocal, neck is supple. She has painless passive motion of her left hip. Straight leg raise is negative. She's tender about the medial joint line of the left knee. Collaterals were stable, Akanksha's negative, Yakov's elicits medial pain. Her distal neurovascular exam appears intact in left lower extremity. - Diagnostic results Knee MRI: image reviewed (MRI of the left knee obtained shows a posterior medial meniscal tear.) Assessment and Plan Assessment: Left knee internal derangement/symptomatic medial meniscal tear Plan: I talked to the patient at length regarding her condition and treatment options. At this point she is quite symptomatic having pain and mechanical symptoms despite conservative measures. After a thorough discussion she opted to proceed with surgery. We'll proceed with left knee arthroscopy with probable partial medial meniscectomy. Risks and benefits were discussed at length in layman's terms. We will likely perform that as an outpatient procedure.
[~2023-12-27 06:01] MED LIST changes: +LIDOCAINE 1% (10MG/ML) FOR IV START INTRADERMA PRN; -TRANEXAMIC 1,000 MG/100ML-NACL 1,000 MG in SALINE 1 100ML.BAG IVPB PRN; +fentaNYL (PF) 50 MCG/ML 2 ML AMP IVP PRN
[2023-12-27] MEDS: ONDANSETRON 4 MG/2 ML VIAL IVP ONE (07:04)
[2023-12-27] MEDS: DEXAMETHASONE SOD PHOSPHATE 4 MG/ML 1 ML VIAL IV ONE (07:05)
[2023-12-27] MEDS: MIDAZOLAM 2 MG/2 ML VIAL IV PRN (07:05)
[2023-12-27] MEDS: diphenhydrAMINE 50 MG/ML 1 ML VIAL IVP STA (07:06)
[2023-12-27] MEDS: FAMOTIDINE 20 MG/2 ML VIAL IV STA (07:07)
[2023-12-27] MEDS ORDERED: SCOPOLAMINE 1 MG/72 HR PATCH TRANSDERM STA (07:08)
[2023-12-27] MEDS: SCOPOLAMINE 1 MG/72 HR PATCH TRANSDERM STA (07:15)
[2023-12-27] MEDS: LACTATED RINGERS 1,000 ML IV SCH (07:19)
[2023-12-27] MEDS ORDERED: LIDOCAINE 1% INJ 10MG/ML (20 ML MDV) ONE (07:24)
[2023-12-27] MEDS ORDERED: MIDAZOLAM 2 MG/2 ML VIAL ONE (07:24)
[2023-12-27] MEDS ORDERED: PROPOFOL 10 MG/ML 20 ML VIAL IV ONE (07:24)
[2023-12-27] MEDS ORDERED: fentaNYL (PF) 50 MCG/ML 2 ML AMP ONE (07:24)
[2023-12-27] MEDS ORDERED: KETOROLAC 15 MG/ML 1 ML VIAL ONE (07:24)
[2023-12-27] MEDS ORDERED: KETAMINE HCL IN 0.9 % NACL 50 MG/5 ML SYRINGE ONE (07:24)
[2023-12-27] MEDS: EPINEPHrine (PF) 1 ML in SODIUM CHLORIDE 0.9% IRRIGATIO 3,000 ML IRRIGATION ONE (07:44)
--- NOTE | 2023-12-27 08:09 | P.OP ---
Date of Procedure: 12/27/23 Preoperative Diagnosis: Left knee internal derangement Postoperative Diagnosis: Left knee posterior medial meniscal tear Procedure(s) Performed: Left knee arthroscopic partial medial meniscectomy Anesthesia: SYDNIEA Surgeon: Shailesh Rosado Estimated Blood Loss (ml): 10 Pathology: none sent Condition: stable Disposition: PACU Indications for Procedure: The patient is a 63-year-old female who presents with persistent left knee pain and mechanical symptoms after twisting injury despite conservative measures. A discussion of the risks and benefits of operative intervention versus continued conservative measures was made with the patient. She opted to proceed with surgery. Operative risks include infection, neurovascular injury, development of blood clots, possible incomplete resolution of symptoms, possible worsening of symptoms and need for subsequent procedures was discussed. Informed consent was obtained. Operative Findings: As below Description of Procedure: The patient was brought to the operating room, and after induction of general anesthesia examined the left knee. Collaterals were stable, Akanksha was negative, and posterior drawer was negative. The left lower extremity was prepped and draped in a normal fashion. A superior lateral portal was made through a 3 mm skin incision superior and lateral to the patella. This was used for outflow. A lateral portal was made through a 5 mm vertical skin incision lateral to the patella tendon above the joint line. Diagnostic arthroscopy was performed. On inspection of the medial compartment, an oblique tear involving the posterior medial meniscus in the white-white junction was noted. This was debrided back to stable base with straight baskets and a motorized shaver. The remaining medial meniscus was stable and intact. Minimal degenerative changes involving the cartilage were noted. On inspection of the notch, the anterior cruciate ligament appeared to be intact. On inspection of the lateral compartment, no significant cartilage or meniscal pathology was noted. On inspection of the patellofemoral articulation, there was chondral fibrillation however no loose chondral fragments. The gutters were clear debris. The knee was then thoroughly irrigated. The portals were closed with Steri-Strips. A sterile dressing was applied in addition to a compression stocking. The patient was awoken from general anesthesia and transferred to recovery room in good condition. Blood loss was estimated at 10 mL. No complications were incurred.
[2023-12-27 08:18] VITALS: TEMP 97.4
[2023-12-27 08:26] VITALS: RESP 16
[2023-12-27] MEDS: HYDROmorphone 0.5 MG/0.5 ML SYRINGE IVP PRN (08:34)
[2023-12-27] MEDS: IV FLUID CONTINUATION 1,000 ML IV ONE (09:15)
[2023-12-27 10:18] VITALS: BP 115/75; PULSE 86
== END 2023-12-27 10:27 | disposition home or self-care (01) ==
LOC: OR 06:01
PROVIDERS: ATTEND Orthopaedic Surgery
DX: M23.222 Derangement of posterior horn of medial meniscus due to old tear or injury, left knee (principal); M54.2 Cervicalgia; F41.9 Anxiety disorder, unspecified; Z80.0 Family history of malignant neoplasm of digestive organs; Z80.42 Family history of malignant neoplasm of prostate; Z80.3 Family history of malignant neoplasm of breast; Z79.1 Long term (current) use of non-steroidal anti-inflammatories (NSAID); Z88.1 Allergy status to other antibiotic agents; Z91.09 Other allergy status, other than to drugs and biological substances; Z87.891 Personal history of nicotine dependence
CPT/HCPCS: 29881; J2250; J1200; J1100; J0690; J2405; J0171; J2001; J3010; J3490; J1885; J2704; J1170

== ENCOUNTER 2024-08-11 09:34 | Day surgery (SDC) | payer OTHER ==
[~2024-08-11 09:34] MED LIST changes: -fentaNYL (PF) 50 MCG/ML 2 ML AMP IVP PRN
[2024-08-11 10:20] VITALS: TEMP 97.3
[2024-08-11] MEDS: LACTATED RINGERS 1,000 ML IV SCH (10:28)
[2024-08-11] MEDS: IV FLUID CONTINUATION 1,000 ML IV ONE (10:29)
[2024-08-11] MEDS ORDERED: PROPOFOL 10 MG/ML 20 ML VIAL IV ONE (10:48)
[2024-08-11] MEDS ORDERED: ONDANSETRON 4 MG/2 ML VIAL ONE (10:48)
[2024-08-11] MEDS ORDERED: LIDOCAINE 1% INJ 10MG/ML (20 ML MDV) ONE (10:48)
--- NOTE | 2024-08-11 10:51 | P.GSHP ---
History of Present Illness H&P Date: 08/11/24 Chief Complaint: Colon cancer screening, family history 64-year-old female here for colonoscopy. Last colonoscopy 8 years ago. Patient's prep at that time was somewhat suboptimal. No bowel complaints. Family history of colon cancer in a mother grandmother and niece. Past Medical History Past Medical History: Musculoskeletal Disorder, Pneumonia Additional Past Medical History / Comment(s): constipation w/narcotic pain meds, white coat syndrome History of Any Multi-Drug Resistant Organisms: None Reported Past Surgical History: Back Surgery, Cholecystectomy, Hysterectomy, Orthopedic Surgery Additional Past Surgical History / Comment(s): left rotator cuff repair, right CTR, cyst removed from lumbar spine, anterior fusion C5-7 06/26, Lt. knee arthroscopy Past Anesthesia/Blood Transfusion Reactions: Family History of Problems w/ Anesthesia, Motion Sickness, Postoperative Nausea & Vomiting (PONV) Additional Past Anesthesia/Blood Transfusion Reaction / Comment(s): brother and sister both have PONV, pt has severe PONV-last surg. had patch behind ear & pre- op meds & worked well for her Smoking Status: Former smoker - Past Family History Mother Family Medical History: Cancer Additional Family Medical History / Comment(s): colon,lung. mother's mom colon CA Father Family Medical History: Cancer Additional Family Medical History / Comment(s): prostate Brother(s) Family Medical History: Cancer Additional Family Medical History / Comment(s): prostate Sister(s) Family Medical History: Cancer Additional Family Medical History / Comment(s): breast cancer Medications and Allergies Home Medications Medication Instructions Recorded Confirmed Type Acetaminophen Tab [Tylenol] 650 mg PO Q4H PRN 06/10/23 08/07/24 History estradioL [estradioL (Once Weekly) 1 patch TRANSDERM MOTH 06/10/23 08/07/24 History 0.025 mg Patch] Cyclobenzaprine [Flexeril] 5 mg PO BID PRN #40 tablet 06/13/23 08/07/24 Rx Ascorbic Acid [Vitamin C] 1 tab PO DAILY 08/07/24 08/07/24 History Docusate [Colace] 100 mg PO DAILY PRN 08/07/24 08/07/24 History Ibuprofen [Motrin Ib] 400 mg PO Q8H 08/07/24 08/07/24 History Magnesium Citrate and Oxide 350 mg PO DAILY 08/07/24 08/07/24 History [Magnesium] Multivitamin [Multivitamins Adult 1 tab PO DAILY 08/07/24 08/07/24 History Gummies] Allergies Allergy/AdvReac Type Severity Reaction Status Date / Time adhesive tape AdvReac Rash/Hives Verified 08/11/24 10:31 azithromycin AdvReac yeast Verified 08/11/24 10:31 infection meclizine [From [facility]] AdvReac Chest Pain Verified 08/11/24 10:31 Surgical - Exam Vital Signs Temp Pulse Resp BP Pulse Ox 97.3 F L 74 16 153/84 98 08/11/24 10:19 08/11/24 10:19 08/11/24 10:19 08/11/24 10:19 08/11/24 10:19 Physical exam: General: Well-developed, well-nourished HEENT: Normocephalic, sclerae nonicteric Abdomen: Nontender, nondistended Extremities: No edema Neuro: Alert and oriented Assessment and Plan (1) Colon cancer screening Narrative/Plan: Will proceed with colonoscopy at this time. Current Visit: No Status: Acute Code(s): Z12.11 - ENCOUNTER FOR SCREENING FOR MALIGNANT NEOPLASM OF COLON SNOMED Code(s): 358041211
--- NOTE | 2024-08-11 11:11 | P.PCN ---
Date of Procedure: 08/11/24 Procedure(s) Performed: PREOPERATIVE DIAGNOSIS: Colon cancer screening with family history POSTOPERATIVE DIAGNOSIS: Diverticulosis PROCEDURE: Colonoscopy ANESTHESIA: MAC SURGEON: Joey Salazar M.D. SPECIMENS: None ENDOSCOPIC PROCEDURE: The patient was placed on the endoscopy table in the left decubitus position. The Olympus colonoscope was inserted into the anus and passed under direct visualization to the base of the cecum. The appendiceal orifice was visualized. From that point the scope was slowly withdrawn inspecting all surfaces carefully. There were no neoplastic inflammatory or polypoid lesions throughout the cecum, ascending, transverse, descending, sigmoid and rectum. There was noted to be mild left-sided diverticulosis present. Digital rectal examination was normal. The patient was taken to the recovery room in stable condition per anesthesia guidelines. RECOMMENDATIONS: Resume diet. Repeat colonoscopy 5 years.
[2024-08-11 11:59] VITALS: BP 135/78; PULSE 63; RESP 16
== END 2024-08-11 12:18 | disposition home or self-care (01) ==
LOC: ORWHC2ENDO 09:34
PROVIDERS: ATTEND Surgery
DX: Z12.11 Encounter for screening for malignant neoplasm of colon (principal); K57.30 Diverticulosis of large intestine without perforation or abscess without bleeding; F41.9 Anxiety disorder, unspecified; Z80.0 Family history of malignant neoplasm of digestive organs; Z87.891 Personal history of nicotine dependence; Z88.1 Allergy status to other antibiotic agents; Z90.49 Acquired absence of other specified parts of digestive tract; Z90.710 Acquired absence of both cervix and uterus; Z88.8 Allergy status to other drugs, medicaments and biological substances
CPT/HCPCS: 45378; J2405; J2003; J2704

== ENCOUNTER → 2024-08-21 | Outpatient (CLI) | payer OTHER ==
--- NOTE | 2024-08-21 18:43 | CT ---
EXAMINATION TYPE: CT chest w con DATE OF EXAM: 08/21/2024 10:22 AM COMPARISON: Plain film and CT CLINICAL INDICATION: Female, 64 years old with history of R07.9 CHEST PAIN; [facility], CHEST PAIN TECHNIQUE: Multiple axial images were obtained through the chest. Sagittal and coronal reformats were created for review. MIP was performed on a separate workstation. Contrast used:100 mL of Isovue 300 with IV Contrast (None if empty) Oral contrast used: (None if empty) CT DLP: 691 mGycm, Automated exposure control for dose reduction was used. FINDINGS: LUNGS/ PLEURA: No focal consolidation, pneumothorax or pleural effusion. AIRWAY: Patent and unremarkable. HEART: Size within normal limits. No significant coronary artery calcifications. MEDIASTINUM: No gross evidence of adenopathy. VASCULATURE: No aortic aneurysm. MUSCULOSKELETAL: Mild to moderate disc degeneration changes are present throughout the thoracolumbar spine secondary to osteophyte formation and facet joint arthropathy. Surgical fixation appears intact . SOFT TISSUES/LYMPH NODES: Unremarkable. LOWER NECK: No significant findings. UPPER ABDOMEN:. Gallbladder surgically absent. Liver has diffuse low-attenuation. IMPRESSION: 1. No evidence for acute process. 2. Surgically absent gallbladder. 3. Hepatic steatosis. [facility], , 08/21/2024 6:41 PM
== END | disposition home or self-care (01) ==
LOC: RADCTMAIN 09:25
PROVIDERS: ATTEND Internal Medicine Critical Care Medicine
DX: R07.9 Chest pain, unspecified (principal); K76.0 Fatty (change of) liver, not elsewhere classified; Z90.49 Acquired absence of other specified parts of digestive tract
CPT/HCPCS: 71260; Q9967

== ENCOUNTER → 2024-12-15 | Outpatient (CLI) | payer OTHER ==
--- NOTE | 2024-12-15 12:12 | MM ---
Reason for Exam: Screening (asymptomatic). Last screening mammogram was performed 12 month(s) ago. Patient History: Menarche at age 15. First Full-Term at age 18. Hysterectomy at age 44. Postmenopausal. Patient has history of breast feeding. Currently using Estrogen, starting at age 62. Sister had breast cancer, age 51. Mother had breast cancer. Risk Values: Rae 5 year model risk: 7.2%. NCI Lifetime model risk: 28.9%. Prior Study Comparison: 02/26/2022 Bilateral MG 3D screening mammo w/cad, [facility]. 11/09/2022 Bilateral MG 3D screening mammo w/cad, [facility]. 12/11/2023 Bilateral MG 3D screening mammo w/cad, [facility]. Tissue Density: The breasts are heterogeneously dense, which may obscure small masses. Findings: Analyzed By CAD. There is no suspicious group of microcalcifications or new suspicious mass in either breast. Overall Assessment: Negative, BI-RAD 1 Management: Screening Mammogram of both breasts in 1 year. . Patient should continue monthly self-breast exams. A clinical breast exam by your physician is recommended on an annual basis. This exam should not preclude additional follow-up of suspicious palpable abnormalities. Note on Rae scores and lifetime risk: 1. A Rae score greater than 3% is considered moderate risk. If this is the case, consider specialist referral to assess eligibility for a risk reducing agent. 2. If overall lifetime risk for the development of breast cancer is 20% or higher, the patient may qualify for future screening with alternating mammogram and breast MRI. [facility], , 12/15/2024 12:08 PM. Electronically signed and approved by: Wolf Hopper M.D. Radiologis
== END | disposition home or self-care (01) ==
LOC: RADMAMWWP 11:23
PROVIDERS: ATTEND Internal Medicine Critical Care Medicine
DX: Z12.31 Encounter for screening mammogram for malignant neoplasm of breast (principal); R92.333 Mammographic heterogeneous density, bilateral breasts; Z78.0 Asymptomatic menopausal state; Z80.3 Family history of malignant neoplasm of breast
CPT/HCPCS: 77063; 77067